=== PATIENT | female | born 1970 | race Caucasian/White ===

== ENCOUNTER → 2019-12-14 14:39 | Outpatient (CLI) | payer MEDICARE, SELFPAY ==
[2019-12-14 14:49] LABS: Chloride 104 mmol/L (98-107); Potassium 4.3 mmoL/L (3.5-5.1); Sodium 140 mmol/L (136-145)
[2019-12-14 14:51] LABS: Alanine Aminotransferase 21 U/L (12-78); Alkaline Phosphatase 75 U/L (38-126); Aspartate Amino Transferase 26 U/L (14-36); Bilirubin,Total 0.3 mg/dl (0.2-1.3); Blood Urea Nitrogen 16 mg/dl (7-17); Estimated Glomerular Filt Rate 90 ml/min (>60); GFR (African American) 109 ML/MIN (>60)
[2019-12-14 14:52] LABS: Albumin Level 4.3 g/dl (3.5-5.0); Albumin/Globulin Ratio 1.7 (1.1-1.8); Anion Gap 12.3 mEq/L (5-15); Calcium 9.5 mg/dl (8.4-10.2); Carbon Dioxide 28 mmol/L (22.0-30.0); Globulin 2.6 g/dL (1.3-3.2); Glucose 91 mg/dl (74-100); Total Protein,Serum 6.9 g/dl (6.3-8.2)
[2019-12-14 15:00] LABS: Basophils # 0.1 K/mm3 (0-0.2); Basophils % 0.8 % (0.1-2.0); Eosinophils # 0.2 K/mm3 (0.0-0.4); Eosinophils % 2.4 % (0.1-12.0); Hematocrit 44.8 % (37.0-47.0); Hemoglobin 14.2 g/dL (12.2-16.2); Lymphocytes # 1.9 K/mm3 (0.7-4.5); Lymphocytes % 27.8 % (10-50); Mean Corpuscular HGB Conc 31.8 g/dL (31.8-35.4); Mean Corpuscular Hemoglobin 29.9 pg (27.0-31.2); Mean Platelet Volume 9.4 fl (7.4-10.4); Monocytes # 0.4 K/mm3 (0.1-1.0); Monocytes % 6.3 % (1.7-9.3); Neutrophils # 4.2 K/mm3 (1.8-7.8); Neutrophils % 62.6 % (37.0-80.0); Platelet Count 288 K/mm3 (142-424); Red Blood Count 4.77 M/mm3 (4.20-5.40); Red Cell Distribution Width 13.3 % (11.5-17.5); White Blood Count 6.7 K/mm3 (4.8-10.8)
[2019-12-14 15:09] LABS: T4 (Thyroxine) 8.3 ug/dl (5.53-11.0)
== END ==
PROVIDERS: Visit Provider Family Medicine
DX: M62.838 Other muscle spasm (principal); M79.7 Fibromyalgia; K74.60 Unspecified cirrhosis of liver
CPT/HCPCS: 80053; 84436; 84443; 85025

== ENCOUNTER → 2020-12-01 10:10 | Outpatient (CLI) | payer MEDICARE, SELFPAY ==
--- NOTE | 2020-12-01 10:21 | XR_ITS ---
PROCEDURE: XR SHOULDER LT MIN 2V CLINICAL INDICATION: pain w/o trauma COMPARISON: No exams were available for comparison FINDINGS: The clavicle is intact. The AC. Joint appears normal. Humeral head and glenoid are normal and there are no soft tissue calcifications. IMPRESSION: No acute findings. Dictated by: Dr. Leonard Larsen MD 12/01/2020 11:17 Dr. Leonard Larsen MD in [place] 12/01/2020 11:17
== END ==
PROVIDERS: PCP Family Medicine; Visit Provider Family Medicine
DX: M25.512 Pain in left shoulder (principal)
CPT/HCPCS: 73030

== ENCOUNTER 2020-12-13 08:00 | Outpatient (RCR) | payer MEDICARE, SELFPAY | END 2020-12-13 08:05 | disposition home or self-care (01) | LOC: PT 08:00 | PROVIDERS: PCP Family Medicine | DX: M25.561 Pain in right knee (principal); M23.91 Unspecified internal derangement of right knee | CPT/HCPCS: 97014; 97016; 97110; 97163; G0283 ==

== ENCOUNTER 2020-12-13 10:00 | Outpatient (RCR) | payer MEDICARE, SELFPAY ==
--- NOTE | 2020-12-06 10:29 | HMH.OTOPEV ---
OT Inpatient Evaluation Rehab OT Outpatient Eval Start: 12/06/20 10:16 Freq: Status: Active Protocol: Document 12/06/20 10:16 RMARSHALL (Rec: 12/06/20 10:28 [id number] Electronically Signed By Anuel Alcaraz OT 12/06/20 10:16 Outpatient Therapy Subjective History Subjective History Pt is a 50 year old female who reports to therapy for initial evaluation to left shoulder. Pt reports she has been experiencing pain at the left shoulder for ~3 months. She does not recall a specific injury to the left shoulder that would initiate pain. Pt does demonstrate with slight decrease in AROM and strength at left shoulder. Pt will continue to be seen twice a week in order to address all deficits. Chief Complaint Pain,Stiff,Weakness Symptom Type Ache,Throb,Sharp,Dull Symptoms Relieved By Rest/Positioning Symptoms Aggravated By Physical Activity,Lifting Prior Functional Limitations None Current Functional Limitations Reaching,Lifting,Housework, Sleeping,Recreation Activity Symptom Description Intermittent,Activity Dependent Level of pain today (0-10) 2 Pain scale - at its best (0-10) 0 Pain scale - at its worst (0-10) 10 Shoulder/Elbow Eval Shoulder Objective Measurements Shoulder ROM Left Shoulder Abduction Active Range of 140 degrees Motion (degrees) Shoulder Flexion Active Range of Motion 140 degrees (degrees) Query Text: Shoulder External Rotation Active Range 65 degrees of Motion (degrees) Shoulder Internal Rotation Active Range 25 degrees of Motion (degrees) Shoulder MMT Shoulder Abduction Strength Grade 3 Fair Shoulder Extension Strength Grade 3 Fair Shoulder Flexion Strength Grade 3 Fair Shoulder External Rotation Strength 3 Fair Grade Shoulder Internal Rotation Strength 3 Fair Grade Shoulder Strength Patient Testing Sitting Position Shoulder Special Tests impingement sign present shoulder exam left standard Shoulder Empty Can (Supraspinatus) Test Positive Left Shoulder Dan-Vince Impingement Positive Left Test Shoulder Neer Impingement Test Positive Left Elbow Objective Measurements OT Outpatient Assessment
== END 2020-12-13 10:05 | disposition home or self-care (01) ==
LOC: OT 10:00
PROVIDERS: PCP Family Medicine; Visit Provider Family Medicine
DX: M25.512 Pain in left shoulder (principal)
CPT/HCPCS: 97014; 97110; 97166; G0283

== ENCOUNTER 2021-01-10 09:40 | Emergency (ER) | payer MEDICARE, SELFPAY ==
[2021-01-10 10:32] VITALS: BP 184/110; PULSE 84; RESP 20; TEMP 36.8; O2SAT 96; BMI 38.0
--- NOTE | 2021-01-10 10:46 | HMH.EDUTC ---
[facility] [place] Clinical Impression: Sinusitis Qualifiers: Sinusitis location: unspecified location Chronicity: acute Recurrence: non-recurrent Qualified Code(s): J01.90 - Acute sinusitis, unspecified Disposition: Home, Self-Care Condition on Discharge: Good Instructions: Sinusitis, DI for Sinusitis Additional Instructions: Drink plenty of fluids. Take tylenol or ibuprofen for pain or fever. Take the medications as directed. Follow up with your regular doctor. GO TO THE ER FOR ANY WORSENING SYMPTOMS The cough medication (promethazine dm) will make you drowsy, so don't drive or operate heavy machinery after taking it. Prescriptions: Promethazine/Dextromethorphan [Promethazine-Dm Syrup] 5 ml PO Q6HP PRN #240 ml PRN Reason: Cough Transmission Status: Received by [facility] Benzonatate [Benzonatate 100mg cap] 100 mg PO TIDP PRN #30 cap PRN Reason: Cough Transmission Status: Received by [facility] methylPREDNISolone [Medrol] 4 mg PO DIRECTED 6 Days #21 packet Transmission Status: Received by [facility] Azithromycin [Z-Leonel 250mg Tab*] 250 mg PO UD DOSE PK #6 tab Transmission Status: Received by [facility] Referrals: Tonny Elder MD [Primary Care Provider] - Time of Disposition: 10:49 Medical Decision Making - Medical Records Medical records reviewed: No: I reviewed the patient's medical records. - Ryder Inquiry Pt receiving controlled substance: No Vital Signs: 01/10/21 10:32 01/10/21 11:06 Temperature 98.2 F 98.2 F Temperature Source Oral Pulse Rate 84 Pulse Rate [Left] 84 Respiratory Rate 20 20 Blood Pressure 184/110 H Blood Pressure [Right Arm] 184/110 H Blood Pressure Mean [Right Arm] 134 02 Sat by Pulse Oximetry 96 - Lab Data Lab results reviewed: Yes: I reviewed the patient's lab results. [facility] [place] - General Stated complaint: fever, cough, runny nose, congestion Time Seen by Provider: 01/10/21 10:46 Mode of Arrival: Ambulatory Source of Information: Patient Limitations: No Limitations Description of Symptoms (Recalled from Triage Doc. by RN): pt states she has bronchitis. pt states she took a covid test and it was negative. pt states she needs a zpack. HEENT Symptoms (Recalled from RN notes): No Resp Symptoms (Recalled from RN notes): Yes (cough) Skin Symptoms (Recalled from RN notes): No MS Symptoms (Recalled from RN notes): No Functional Status (Recalled from RN notes): na - History of Present Illness Provider Complaint: She c/o sore throat, cough and sinus congestion for the past 2 days. She has had covid-19 about 2 months ago, and she states that this is not covid. She states that she has a sinus infection. - Related Data Previous Rx's Medication Instructions Recorded amitriptyline 25 mg tablet 25 mg PO DAILY #90 tab 12/14/19 clobetasol 0.05 % topical cream 1 applic TOPICAL BID 14 Days #60 g 10/03/20 methylprednisolone 4 mg tablets in See Rx Instructions PO PER PKG DIR 10/03/20 a dose pack #21 tab Azithromycin [Z-Leonel 250mg Tab*] 250 mg PO UD DOSE PK #6 tab 01/10/21 Benzonatate [Benzonatate 100mg 100 mg PO TIDP PRN #30 cap 01/10/21 cap] Promethazine/Dextromethorphan 5 ml PO Q6HP PRN #240 ml 01/10/21 [Promethazine-Dm Syrup] methylPREDNISolone [Medrol] 4 mg PO DIRECTED 6 Days #21 01/10/21 packet Allergies Allergy/AdvReac Type Severity Reaction Status Date / Time gabapentin AdvReac Severe Joint Pain Verified 10/03/20 08:54 NSAID AdvReac Intermediate Uncoded 10/03/20 08:46 - Worker's Comp Is this a Worker's Comp case?: No [facility] History - Hepatitis A Screen Drug use history?: No High risk sexual behaviors?: No History of sexually transmitted infection?: No Currently employed?: No Childcare worker?: No Do you have indoor plumbing?: Yes Do you have electricity?: Yes Attestation statement:: This patient has been screened for Hepatitis A risk factors. I have re
[2021-01-10 11:06] VITALS: BP 184/110; PULSE 84; RESP 20; TEMP 36.8
== END 2021-01-10 11:07 | disposition home or self-care (01) ==
PROVIDERS: Emergency Provider Nurse Practitioner Family; PCP Family Medicine
DX: J01.90 Acute sinusitis, unspecified (principal); Z20.822 Contact with and (suspected) exposure to COVID-19
CPT/HCPCS: G0463; 99202

== ENCOUNTER → 2021-01-24 11:59 | Outpatient (CLI) | payer OTHER, SELFPAY ==
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
== END ==
PROVIDERS: PCP Family Medicine; Visit Provider Family Medicine
DX: M25.551 Pain in right hip (principal); M54.6 Pain in thoracic spine; M54.50 Low back pain, unspecified; V89.2XXA Person injured in unspecified motor-vehicle accident, traffic, initial encounter
CPT/HCPCS: 71111; 72072; 72110; 73502

== ENCOUNTER → 2021-02-13 09:44 | Outpatient (POV) | payer OTHER, SELFPAY ==
[2021-02-13 10:40] VITALS: BP 161/91; PULSE 62; RESP 18; O2SAT 96; BMI 40.4
--- NOTE | 2021-03-20 08:44 | HMH.PMCON ---
Assessment and Plan (1) Neck pain Status: Chronic Category: Medical Code(s): M54.2 - Cervicalgia (2) Mid back pain Status: Chronic Category: Medical Code(s): M54.9 - Dorsalgia, unspecified (3) Low back pain Status: Chronic Category: Medical Code(s): M54.50 - Low back pain, unspecified - Assessment and plan all Dx Assessment and Plan for all problems:: Patient's pain is primarily in her neck area at this time. She does not have any recent imaging. We will send her for x-ray cervical spine per her request. We will order her tramadol 50 mg 1 tablet p.o. 3 times daily as needed moderate pain until we get the imaging back and determine a plan of care at that time. She is in agreement. Risks and benefits of the medication have been explained in detail to the patient. The patient does understand the risk of dependence on the medication when given over a prolonged period. Patient has been advised of risks of oversedation with the prescribed medication. Narcan has been offered to the paitent in the event of oversedation. Patient has been advised that a family member should also be educated regarding administration of Narcan. The patient has been advised to consult with his/her primary care provider and pharmacist regarding drug-drug interaction of medications currently prescribed. Patient has been prescribed a controlled substance after being counseled on the medication, medication safety, and possible side effects. CHUCK report has been obtained and reviewed prior to prescription and found to be appropriate. Opioid contract was reviewed and signed by the patient, and that they have agreed to all of the terms set forth by our compliance program. Patient has been instructed to contact the clinic with any concerns before the next appointment. Dr. De La Paz has reviewed this note and agrees with this plan of care. This note was dictated using voice recognition software and make contain errors or omissions. HPI - Data of Consult Patient: new to practice Requesting Physician: Sara Macedo APRN - Consult Narrative Reason for consult: Neck pain History of present illness: Ms. Oswald is a 50 year old female who presents today for consultation for chronic neck, mid back and low back pain. The patient says the pain has been ongoing for some time. She reports the pain to be progressively worsening. She has had a thoracic and lumbar x-rays from her primary care provider. She has been managed with oral medications in the past. She says the pain is worse with movement of head as well as standing and walking. The pain has not improved with conservative therapies. She has tried home stretching and physical therapy in the past. She does report her neck to be the most painful at this time. She does not have any current imaging of the area. She denies any changes in bowel or bladder habit. She denies any saddle anesthesia. She rates her pain a 6 out of 10. CC: Sara Macedo APRN [facility] History I have reviewed the patient's past medical history: Yes Medical History: Reports:: Cancer, Migraine *Have you ever received a pneumonia vaccine?: No *Have you received a flu vaccine this season?: No Other Surgeries: Yes: Dilation and Curettage, Hysterectomy-Total, Plastic Surgery, Tubal Ligation - *Social History Smoking Status: Never smoker Alcohol Intake: never Substance Use Type: denies use *Occupational Status:: employed, disabled Housing: house Household Members: spouse *Travel in the last 8 weeks: None Family Hx:: No significant family history Review of Systems - Review of Systems Review of Systems General: No recent weight changes, no fever, no sleep disturbances Respiratory: No cough, no shortness of air, no recurring pulmonary infections Cardiovascular/peripheral vascular: No chest pain, no palpitations, no edema, no shortness of breath Gastrointestinal: No new onset incontinence, normal bowel
== END ==
PROVIDERS: Visit Provider Clinical Nurse Specialist Family Health
DX: M54.2 Cervicalgia (principal); M54.50 Low back pain, unspecified
CPT/HCPCS: 99202; G0463

== ENCOUNTER → 2021-02-13 11:11 | Outpatient (CLI) | payer OTHER, SELFPAY ==
--- NOTE | 2021-02-13 11:17 | XR_ITS ---
PROCEDURE: XR CERVICAL SPINE 5V CLINICAL INDICATION: NECK PAIN COMPARISON: CR CS5 CERVICAL SPINE 4 OR 5 VIEWS from 06/13/2013 FINDINGS: C-spine is only well visualized to the superior aspect of C7. There is degenerative disc disease at C5-C6 and C6-C7. Foraminal narrowing is present on the left at C5-C6 and and to lesser degree at C6-C7. There is normal alignment. No acute fracture or dislocation is evident. Other findings:None. IMPRESSION: Degenerative disc disease C5-C6 and C6-C7 with left-sided foraminal narrowing at C 5 -6 and C6-7 Dictated by: Todd Rose MD 02/13/2021 16:57 Todd Rose MD in [place] 02/13/2021 16:57
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
== END ==
PROVIDERS: PCP Family Medicine; Visit Provider Clinical Nurse Specialist Family Health
DX: M54.2 Cervicalgia (principal)
CPT/HCPCS: 72050

== ENCOUNTER 2023-04-15 13:05 | Emergency (ER) | payer MEDICARE, SELFPAY ==
[2023-04-15] VITALS (8 sets, daily range): BP systolic 105–149; BP diastolic 73–85; PULSE 63–87; RESP 8–18; TEMP 36.7; O2SAT 93–100; BMI 34.5
--- NOTE | 2023-04-15 13:36 | CT_ITS ---
FINAL REPORT TECHNIQUE: After the administration of oral and intravenous contrast, axial images were obtained through the abdomen and pelvis by computed tomography. The study was performed with techniques to keep radiation dose as low as reasonably achievable, (ALARA). Individual dose reduction techniques using automated exposure control or adjustment of mA and/or kV according to the patient's size were employed. CLINICAL HISTORY: epigastric pain, hx PUD, palpable knot epigastrium showed up saturday COMPARISON: None FINDINGS: Abdomen: The lung bases are clear. The liver parenchyma is homogeneous. The gallbladder is present. The spleen, pancreas, adrenals and kidneys appear unremarkable. The aorta is normal in caliber. There is no free fluid or adenopathy. There is an umbilical hernia with fat, and adjacent stranding and inflammatory change within the hernia sac. The fascial defect of the hernia measures 1.5 cm in diameter. There is no bowel present within the hernia sac. Pelvis: The appendix is not well identified. The urinary bladder is unremarkable. There is no free fluid or adenopathy. IMPRESSION: There is an umbilical hernia containing fat, with adjacent stranding and inflammatory change of the fat within the hernia sac. The fascial defect of the hernia measures 1.5 cm in diameter, and there is no bowel present within the hernia sac. Reviewed, Interpreted and Dictated by Lui Lawler MD Transcribed by Indy Muñoz Authenticated and [facility]
--- NOTE | 2023-04-15 13:39 | HMH.EDGENADL ---
Discharge Plan Disposition Patient Disposition: Home, Self-Care Condition: Good Chief Complaint: Abdominal Pain Prescriptions Prescriptions: No Action amitriptyline 25 mg tablet 25 mg PO DAILY Qty: 90 3RF [id number] [Fioricet with Codeine] [id number] mg capsule 1 cap PO Q4H PRN (Reason: pain) Qty: 45 3RF cyclobenzaprine 10 mg tablet 10 mg PO TID PRN (Reason: muscle spasm) Qty: 60 3RF tramadol 50 MG tablet 50 mg PO TID PRN (Reason: Moderate Pain) Qty: 42 0RF acetazolamide 500 mg capsule, extended release 500 mg PO BID Patient Comments: TAKE 1 CAPSULE BY MOUTH TWICE DAILY. THIS IS IN ADDITION TO THE 250 MG TWICE DAILY acetazolamide 250 mg tablet 250 mg PO DAILY Patient Comments: TAKE 1 TABLET BY MOUTH ONCE DAILY FOR 2 WEEKS THEN INCREASE TO TWICE DAILY THEREAFTER Referrals Follow up/Referrals: Deion Sen MD [Primary Care Provider] - See instructions Clinical Impressions Clinical Impression: Hernia Instructions Patient Instructions: DI for Ventral Hernia Discharge ED Provider: Yadira Banks General Adult HPI <Jairo Etienne DO - Last Filed: 04/15/23 15:45> General Chief complaint: Abdominal Pain Stated complaint: abd pain Time Seen by Provider: 04/15/23 13:31 Mode of Arrival: Ambulatory Source of Information: Patient Limitations: No Limitations Description of Symptoms (Recalled from ER Triage Doc. by RN): patient ambulatory to ED with complaints of generalized abdominal pain since saturday. She felt a sharp pain to umbilical area, then immediatly felt a knot in same location. Pt rates pain 9/10 with pressure. Denies n/v/d or fever. History of Present Illness HPI narrative: 52-year-old female with past medical history significant for polymyalgia, uterine cancer in remission s/p hysterectomy, history of peptic ulcer disease, presents today for evaluation concerning epigastric abdominal pain which has been present since this past Saturday. Patient states that she has also noted a knot in the area that is tender to palpation. States that she has been able to tolerate oral intake however decreased secondary to pain. Has not had any nausea, vomiting, fevers, chills, chest pain, shortness of breath, dysuria, hematuria, diarrhea, constipation or any other associated symptoms at this time. Related Data Home Medications Medication Instructions Recorded Confirmed acetazolamide 250 mg tablet 250 mg PO DAILY 04/15/23 04/15/23 acetazolamide 500 mg 500 mg PO BID 04/15/23 04/15/23 capsule,extended release Previous Rx's Medication Instructions Recorded amitriptyline 25 mg tablet 25 mg PO DAILY #90 tabs 12/14/19 butalbital 50 mg-acetaminophen 300 1 cap PO Q4H PRN pain #45 caps 02/06/21 mg-caffeine 40 mg-codeine 30 mg cap (Fioricet with Codeine) cyclobenzaprine 10 mg tablet 10 mg PO TID PRN muscle spasm #60 02/06/21 tabs tramadol 50 mg tablet 50 mg PO TID PRN Moderate Pain #42 02/14/21 tabs Allergies Allergy/AdvReac Type Severity Reaction Status Date / Time NSAIDS (Non-Steroidal Allergy Unknown Unknown Unverified 04/15/23 15:40 Anti-Inflamma allergy reaction gabapentin AdvReac Severe Joint Pain Verified 04/15/23 13:59 PFSH <Jairo Etienne DO - Last Filed: 04/15/23 15:45> [facility] Disclaimer: The information contained in this section may have been updated after the patient was seen, as this information can be updated by other users. Social History Smoking Status: Never smoker alcohol intake: never substance use type: denies use current occupational status: unemployed Travel in the last 8 weeks: None household members: spouse housing: house <Jairo Etienne DO - Last Filed: 04/15/23 15:45> ROS Obtained: Yes All systems reviewed & no additional complaints except as documented Physical Exam <Jairo Etienne DO - Last Filed: 04/15/23 15:45> General General appearance: alert and in no apparent distress Head Head exam: atraumatic and normocephalic Eye Eye exam: Present normal appearance, PERRL and EOMI ENT ENT exam: Present normal oropharynx and mucous membranes moist Neck Neck exam: Present full ROM; Absent meningismus Respiratory Respiratory exam: Absent respiratory distress, wheezes, stridor or accessory muscle use Cardiovascular Cardiovascular exam: Present normal rhythm Abdominal Exam Abdominal exam: Present soft, tenderness and mass (Palpable mass noted in the epigastric region.); Absent distention, guarding, rebound or rigidity Abdominal tenderness: Present epigastrium Neurological Exam Neurological exam: Present alert, oriented X3 and CN II-XII intact; Absent motor sensory deficit Psychiatric Psychiatric exam: Present normal affect and normal mood Skin Skin exam: Present warm and dry Medical Decision Making <Jairo Etienne DO - Last Filed: 04/15/23 15:45> Medical Records Medical records reviewed: Yes I reviewed the patient's medical records. Ryder Inquiry Pt receiving controlled substance: No Ryder was queried for this patient: No Vital Signs: 04/15/23 13:06 04/15/23 14:02 04/15/23 15:02 Temperature 98.0 F Temperature Source Oral Pulse Rate 72 72 Pulse Rate [Right] 87 Respiratory Rate 13 12 18 Blood Pressure 105/79 L 121/80 Blood Pressure [Right Arm] 149/85 H Blood Pressure Mean [Right Arm] 106 Blood Pressure Source [Right Arm] Automatic Cuff 02 Sat by Pulse Oximetry 96 99 93 L Oxygen Delivery Method Room Air Room Air Room Air Lab Data Lab Results 04/15/23 13:20: WBC 6.7, RBC 4.36, Hgb 13.8, Hct 41.1, MCV 94.2, MCH 31.6 H, MCHC 33.5, RDW 12.9, Plt Count 238, MPV 7.4, Neut % (Auto) 62.4, Lymph % (Auto) 30.4, Sandoval % (Auto) 5.1, Eos % (Auto) 1.4, Baso % (Auto) 0.6, Neut # (Auto) 4.2, Lymph # (Auto) 2.1, Sandoval # (Auto) 0.3, Eos # (Auto) 0.1, Baso # (Auto) 0.0, Sodium 140, Potassium 3.7, Chloride 113 H, Carbon Dioxide 26, Anion Gap 4.7 L, BUN 9, Creatinine 0.60, Estimated Creat Clear 137, Estimated GFR 106, Est GFR ( Amer) 128, Glucose 88, Calcium 8.8, Total Bilirubin 0.4, AST 25, ALT 24, Alkaline Phosphatase 78, Total Protein 6.9, Albumin 4.1, Globulin 2.8, Albumin/Globulin Ratio 1.5 04/15/23 13:40: Lactate 0.5 L 04/15/23 13:20 04/15/23 13:20 Orders (Tests/Meds): ED MEDICATIONS Generic Name Dose Route Start Last Admin Trade Name Jerrellq PRN Reason Stop Dose Admin Sodium Chloride 10 ml 04/15/23 13:32 Sodium Chloride 0.9% 10ml Flush Syringe IV 05/15/23 13:31 NEEDED PRN Maintain IV Site Discontinued Medications Generic Name Dose Route Start Last Admin Trade Name Jerrellq PRN Reason Stop Dose Admin Iopamidol 75 ml 04/15/23 13:52 04/15/23 13:53 Iopamidol-370 (76%);100ml Bottle IV 04/15/23 13:53 75 ml ONCE ONE Administration Morphine Sulfate 4 mg 04/15/23 13:36 04/15/23 13:45 Morphine 4mg/Ml Syringe IV 04/15/23 13:37 4 mg ONCE ONE Administration Morphine Sulfate 4 mg 04/15/23 15:32 04/15/23 15:36 Morphine 4mg/Ml Syringe IV 04/15/23 15:33 4 mg ONCE ONE Administration Ondansetron HCl 4 mg 04/15/23 13:36 04/15/23 13:44 Ondansetron 4mg/2ml Vial IV 04/15/23 13:37 4 mg ONCE ONE Administration Sodium Chloride 10 ml 04/15/23 13:52 04/15/23 13:53 Sodium Chloride 0.9% 10ml Syr (Rad Only) IV 04/15/23 13:53 10 ml ONCE ONE Administration ORDERS Category Date Time Status CT abdomen pelvis w con Stat Cat Scan 04/15/23 13:36 Completed CBC w/Auto Diff [Complete Blood Count Auto Diff] Stat Lab 04/15/23 13:20 Completed CMP [Comprehensive Metabolic Panel] Stat Lab 04/15/23 13:20 Completed Lactic Acid Stat Lab 04/15/23 13:40 Completed ECG initial Besson Routine Y 04/15/23 14:03 Completed ECG Data Tracing #1: I reviewed this ECG and interpreted as documented below: EKG personally interpreted by me. Normal sinus rhythm with a rate of [address] elevations to suggest ischemia. Medical Decision Narrative: 52-year-old female with past medical history significant for polymyalgia, uterine cancer in remission s/p hysterectomy, history of peptic ulcer disease, presents today for evaluation concerning epigastric abdominal pain which has been present since this past Saturday. Patient states that she has also noted a knot in the area that is tender to palpation. States that she has been able to tolerate oral intake however decreased secondary to pain. On assessment, the patient was hemodynamically stable and in no acute distress. Afebrile. Physical exam was remarkable for epigastric tenderness to palpation without rebound or guarding. There is also a palpable mass located in the epigastric region. Other physical exam findings unremarkable. Differential diagnoses include but not limited to hernia, peptic ulcer disease, gastritis, gastroenteritis, ACS considered however low suspicion as patient does not have any complaints of chest pain or shortness of breath and does not have risk factors, pancreatitis among others. Patient's CBC has been nonactionable with no elevation in WBC at 6.7. CMP also nonactionable. No transaminitis. EKG was personally interpreted by me and was with normal sinus rhythm with a rate of 74 bpm, no ST elevations noted. She was given IV morphine for pain control while in the ED. Subsequently required a second dose of 4 mg IV morphine. At this time CT results are pending however on my wet read there appears to be a fat-containing hernia in the epigastric region which likely explains patient's symptoms. I discussed current ED workup and results with patient. Care signed out to oncoming provider pending CT imaging results and final disposition. <Yadira Banks MD - Last Filed: 04/15/23 17:02> Vital Signs: 04/15/23 13:06 04/15/23 14:02 04/15/23 15:02 Temperature 98.0 F Temperature Source Oral Pulse Rate 72 72 Pulse Rate [Right] 87 Respiratory Rate 13 12 18 Blood Pressure 105/79 L 121/80 Blood Pressure [Right Arm] 149/85 H Blood Pressure Mean [Right Arm] 106 Blood Pressure Source [Right Arm] Automatic Cuff 02 Sat by Pulse Oximetry 96 99 93 L Oxygen Delivery Method Room Air Room Air Room Air Lab Data Lab Results 04/15/23 13:20: WBC 6.7, RBC 4.36, Hgb 13.8, Hct 41.1, MCV 94.2, MCH 31.6 H, MCHC 33.5, RDW 12.9, Plt Count 238, MPV 7.4, Neut % (Auto) 62.4, Lymph % (Auto) 30.4, Sandoval % (Auto) 5.1, Eos % (Auto) 1.4, Baso % (Auto) 0.6, Neut # (Auto) 4.2, Lymph # (Auto) 2.1, Sandoval # (Auto) 0.3, Eos # (Auto) 0.1, Baso # (Auto) 0.0, Sodium 140, Potassium 3.7, Chloride 113 H, Carbon Dioxide 26, Anion Gap 4.7 L, BUN 9, Creatinine 0.60, Estimated Creat Clear 137, Estimated GFR 106, Est GFR ( Amer) 128, Glucose 88, Calcium 8.8, Total Bilirubin 0.4, AST 25, ALT 24, Alkaline Phosphatase 78, Total Protein 6.9, Albumin 4.1, Globulin 2.8, Albumin/Globulin Ratio 1.5 04/15/23 13:40: Lactate 0.5 L Orders (Tests/Meds): ED MEDICATIONS Generic Name Dose Route Start Last Admin Trade Name Freq PRN Reason Stop Dose Admin Sodium Chloride 10 ml 04/15/23 13:32 Sodium Chloride 0.9% 10ml Flush Syringe IV 05/15/23 13:31 NEEDED PRN Maintain IV Site Discontinued Medications Generic Name Dose Route Start Last Admin Trade Name Freq PRN Reason Stop Dose Admin Iopamidol 75 ml 04/15/23 13:52 04/15/23 13:53 Iopamidol-370 (76%);100ml Bottle IV 04/15/23 13:53 75 ml ONCE ONE Administration Morphine Sulfate 4 mg 04/15/23 13:36 04/15/23 13:45 Morphine 4mg/Ml Syringe IV 04/15/23 13:37 4 mg ONCE ONE Administration Morphine Sulfate 4 mg 04/15/23 15:32 04/15/23 15:36 Morphine 4mg/Ml Syringe IV 04/15/23 15:33 4 mg ONCE ONE Administration Ondansetron HCl 4 mg 04/15/23 13:36 04/15/23 13:44 Ondansetron 4mg/2ml Vial IV 04/15/23 13:37 4 mg ONCE ONE Administration Sodium Chloride 10 ml 04/15/23 13:52 04/15/23 13:53 Sodium Chloride 0.9% 10ml Syr (Rad Only) IV 04/15/23 13:53 10 ml ONCE ONE Administration ORDERS Category Date Time Status CT abdomen pelvis w con Stat Cat Scan 04/15/23 13:36 Completed CBC w/Auto Diff [Complete Blood Count Auto Diff] Stat Lab 04/15/23 13:20 Completed CMP [Comprehensive Metabolic Panel] Stat Lab 04/15/23 13:20 Completed Lactic Acid Stat Lab 04/15/23 13:40 Completed ECG initial Besson Routine Y 04/15/23 14:03 Completed Medical Decision Narrative: 52-year-old female with past medical history significant for polymyalgia, uterine cancer in remission s/p hysterectomy, history of peptic ulcer disease, presents today for evaluation concerning epigastric abdominal pain which has been present since this past Saturday. Patient states that she has also noted a knot in the area that is tender to palpation. States that she has been able to tolerate oral intake however decreased secondary to pain. On assessment, the patient was hemodynamically stable and in no acute distress. Afebrile. Physical exam was remarkable for epigastric tenderness to palpation without rebound or guarding. There is also a palpable mass located in the epigastric region. Other physical exam findings unremarkable. Differential diagnoses include but not limited to hernia, peptic ulcer disease, gastritis, gastroenteritis, ACS considered however low suspicion as patient does not have any complaints of chest pain or shortness of breath and does not have risk factors, pancreatitis among others. Patient's CBC has been nonactionable with no elevation in WBC at 6.7. CMP also nonactionable. No transaminitis. EKG was personally interpreted by me and was with normal sinus rhythm with a rate of 74 bpm, no ST elevations noted. She was given IV morphine for pain control while in the ED. Subsequently required a second dose of 4 mg IV morphine. At this time CT results are pending however on my wet read there appears to be a fat-containing hernia in the epigastric region which likely explains patient's symptoms. I discussed current ED workup and results with patient. Care signed out to oncoming provider pending CT imaging results and final disposition. Yadira Banks MD: I assumed care of this patient and independently reviewed and interpreted her CT scan. I agree with radiologist interpretation that patient has a midline abdominal wall hernia superior to the umbilicus with adjacent stranding but no incarcerated bowel or bowel obstruction. The hernia is fat-containing. I discussed this with patient and performed a physical exam significant for reducible midline hernia with no signs of strangulation or other concerns. Discussed with patient conservative management and an urgent referral to general surgery and patient is comfortable with this plan. She was appropriate for discharge with strict return precautions and I discussed with her signals of bowel incarceration or bowel obstruction and other complications. Critical Care <Jairo Etienne, DO - Last Filed: 04/15/23 15:45> Critical Care Time Critical Care Time: No
[2023-04-15] MEDS: ONDANSETRON 4MG/2ML VIAL 4 MG IV (13:44)
[2023-04-15] MEDS: MORPHINE 4MG/ML SYRINGE 4 MG IV ×2 (13:45→15:36)
[2023-04-15 13:48] LABS: Basophils % 0.6 % (0.1-2.0); Eosinophils # 0.1 K/mm3 (0.0-0.4); Eosinophils % 1.4 % (0.1-12.0); Hematocrit 41.1 % (37.0-47.0); Hemoglobin 13.8 g/dL (12.2-16.2); Lymphocytes # 2.1 K/mm3 (0.7-4.5); Lymphocytes % 30.4 % (10-50); Mean Corpuscular HGB Conc 33.5 g/dL (31.8-35.4); Mean Corpuscular Hemoglobin 31.6 pg (27.0-31.2); Mean Corpuscular Volume 94.2 fl (81-99); Mean Platelet Volume 7.4 fl (7.4-10.4); Monocytes # 0.3 K/mm3 (0.1-1.0); Monocytes % 5.1 % (1.7-9.3); Neutrophils # 4.2 K/mm3 (1.8-7.8); Neutrophils % 62.4 % (37.0-80.0); Platelet Count 238 K/mm3 (142-424); Red Blood Count 4.36 M/mm3 (4.20-5.40); Red Cell Distribution Width 12.9 % (11.5-17.5); White Blood Count 6.7 K/mm3 (4.8-10.8)
[2023-04-15 13:49] LABS: Chloride 113 mmol/L (98-107)
[2023-04-15 13:50] LABS: Potassium 3.7 mmoL/L (3.5-5.1); Sodium 140 mmol/L (136-145)
[2023-04-15 13:52] LABS: Alanine Aminotransferase 24 U/L (12-78); Aspartate Amino Transferase 25 U/L (14-36); Blood Urea Nitrogen 9 mg/dl (7-17); Creatinine Clearance Estimated 137 mL/min (50-200); Estimated Glomerular Filt Rate 106 ml/min (>60); GFR (African American) 128 ML/MIN (>60)
[2023-04-15 13:53] LABS: Albumin Level 4.1 g/dl (3.5-5.0); Albumin/Globulin Ratio 1.5 (1.1-1.8); Alkaline Phosphatase 78 U/L (38-126); Anion Gap 4.7 mEq/L (5-15); Bilirubin,Total 0.4 mg/dl (0.2-1.3); Calcium 8.8 mg/dl (8.4-10.2); Carbon Dioxide 26 mmol/L (22.0-30.0); Globulin 2.8 g/dL (1.3-3.2); Glucose 88 mg/dl (74-100); Total Protein,Serum 6.9 g/dl (6.3-8.2)
[2023-04-15] MEDS: SODIUM CHLORIDE 0.9% 10ML SYR (RAD ONLY) 10 ML IV (13:53)
[2023-04-15] MEDS: IOPAMIDOL-370 (76%);100ML BOTTLE 75 ML IV (13:53)
--- NOTE | 2023-04-15 14:03 | ECG_ITS ---
APPROVED REPORT Exam: Resting ECG HR:74 bpm ECG Measurements Heart Rate 74 AXES WV 136 P 40 QRSd 98 QRS -3 QT 395 T 51 QTc 422 Conclusion SINUS RHYTHM LOW QRS VOLTAGE IN PRECORDIAL LEADS [QRS DEFLECTION Late R wave progression Electronically signed by : Jose Savage MD 04/16/2023 20:11:23
[2023-04-15 14:09] LABS: Lactic Acid 0.5 mmol/L (0.7-2.1)
--- NOTE | 2023-04-15 14:57 | PC.NURSE ---
Rounded on pt. No needs or complaints voiced a this time. Call light within reach.
--- NOTE | 2023-04-15 15:30 | PC.NURSE ---
Pt resting quietly. No needs voiced. Call light within reach.
== END 2023-04-15 17:12 | disposition home or self-care (01) ==
PROVIDERS: Emergency Medicine; Emergency Provider Emergency Medicine; PCP Family Medicine
DX: R10.13 Epigastric pain (principal); K42.9 Umbilical hernia without obstruction or gangrene; M35.3 Polymyalgia rheumatica; Z85.42 Personal history of malignant neoplasm of other parts of uterus
CPT/HCPCS: 74177; 80053; 83605; 85025; 93005; 96374; 96375; 96376; 99285; J2405; Q9967

== ENCOUNTER 2023-04-18 10:02 | Outpatient (CLI) | payer MEDICARE, SELFPAY ==
[2023-04-18 10:37] LABS: Basophils % 0.7 % (0.1-2.0); Eosinophils # 0.1 K/mm3 (0.0-0.4); Eosinophils % 1.7 % (0.1-12.0); Hematocrit 43.8 % (37.0-47.0); Hemoglobin 13.9 g/dL (12.2-16.2); Lymphocytes # 1.4 K/mm3 (0.7-4.5); Lymphocytes % 29.5 % (10-50); Mean Corpuscular HGB Conc 31.7 g/dL (31.8-35.4); Mean Corpuscular Hemoglobin 31.2 pg (27.0-31.2); Mean Corpuscular Volume 98.4 fl (81-99); Mean Platelet Volume 7.5 fl (7.4-10.4); Monocytes # 0.3 K/mm3 (0.1-1.0); Monocytes % 5.2 % (1.7-9.3); Neutrophils % 62.9 % (37.0-80.0); Platelet Count 257 K/mm3 (142-424); Red Blood Count 4.45 M/mm3 (4.20-5.40); Red Cell Distribution Width 12.9 % (11.5-17.5); White Blood Count 4.8 K/mm3 (4.8-10.8)
[2023-04-18 10:48] LABS: Anion Gap 11.9 mEq/L (5-15); Blood Urea Nitrogen 9 mg/dl (7-17); Calcium 9.5 mg/dl (8.4-10.2); Carbon Dioxide 23 mmol/L (22.0-30.0); Chloride 111 mmol/L (98-107); Estimated Glomerular Filt Rate 76 ml/min (>60); GFR (African American) 92 ML/MIN (>60); Glucose 89 mg/dl (74-100); Potassium 3.9 mmoL/L (3.5-5.1); Sodium 142 mmol/L (136-145)
== END 2023-04-18 23:59 ==
PROVIDERS: PCP Family Medicine; Visit Provider Surgery
DX: K46.9 Unspecified abdominal hernia without obstruction or gangrene (principal); Z01.812 Encounter for preprocedural laboratory examination
CPT/HCPCS: 36415; 80048; 85025

== ENCOUNTER 2023-04-23 10:23 | Day surgery (SDC) | payer MEDICARE, SELFPAY ==
[2023-04-23] VITALS (9 sets, daily range): BP systolic 117–156; BP diastolic 74–97; PULSE 60–88; RESP 12–18; TEMP 36.4–36.7; O2SAT 97–100
[2023-04-23] MEDS: LACTATED RINGERS 1000ML 1,000 ML 25 ML IV (10:39)
[2023-04-23] MEDS: LIDOCAINE 1% 20ML MDV 20 ML (12:24)
[2023-04-23] MEDS: CEFAZOLIN SODIUM 1 GM in 0.9 % SODIUM CHLORIDE 50 ML IV (12:24)
[2023-04-23] MEDS: ROPIVACAINE 0.5% 30ML VIAL 150 MG (12:24)
--- NOTE | 2023-04-23 12:33 | EXP.ANES.CKL ---
[facility] Disclaimer: The information contained in this section may have been updated after the patient was seen, as this information can be updated by other users. Medical History Fibromyalgia History of uterine cancer Surgical History H/O: hysterectomy Hx of breast reduction, elective Family History Other Family history of cancer Social History Smoking Status: Never smoker alcohol intake: never substance use type: denies use current occupational status: unemployed Travel in the last 8 weeks: Inside the [place] household members: spouse housing: house [facility] Anesthesia Checklist Patient Identification Patient Identification: Verbal (Name & ) Structural Data Admitted From: Home Planned Operative Procedure/s: incisional hernia rpr Consent for Planned Operative Procedure(s) Verified: Yes NPO Status Verified Time NPO: 00:00 Additional verifications Anesthesia Reactions: No Hx Blood Transfusions: No Airway Assessment Mallampati Score:: Class II C-Spine Mobility Assessed: Yes TMJ Mobility Assessed: Yes Dentition: Good Dentition Neurological Assessment Level of Consciousness: Awake, Alert and Appropriate Anesthesia Plan Anesthesia Risk discussed: Yes Anesthesia Plan: Verified ASA Class: II Anesthesia Type: General
--- NOTE | 2023-04-23 13:22 | EXP.OP.NOTE ---
Date of procedure: 04/23/23 Pre-op Diagnosis:: Trocar site incisional hernia Post-op Diagnosis:: Same Procedure performed:: Laparoscopically directed repair of incisional hernia with placement of 6.4 cm Ventralex mesh Surgeon:: Ike East MD REAMING MACHINE OPERATOR:: Shady Serrano Anesthesia: GETA Estimated blood loss (mL): 10 Clinical Note:: Patient is a 52-year-old female from [place] with history of fibromyalgia, uterine cancer status post previous laparoscopic hysterectomy. She was referred to the office from the emergency department for hernia. Her primary care provider is Deion Sen. She had been out of town traveling and states that she had eaten somewhat more than usual. She developed relatively sudden onset of upper abdominal pain and tenderness with a palpable knot. She states that eating had continued to cause exacerbations of the pain. She presented to the emergency department due to ongoing symptoms on 04/15/2023. She underwent CT scan which revealed a small (1.5 cm fascial defect) supraumbilical fat-containing hernia with no evidence of any bowel present. She was referred for surgical consultation. Of note, the patient had previously undergone laparoscopic hysterectomy for uterine cancer using da Chanelle robot in 2013 at [place]. Patient was seen in the office as an outpatient consultation on 04/18/2023. She had focal tenderness above her umbilicus likely consistent with trocar site incisional hernia. Patient wished to pursue surgery as soon as possible. I felt that the best plan of action would be laparoscopically directed repair likely with medium Bard Ventralex mesh. Options were discussed with the patient and the nature and details of the proposed procedure along with the associated risks and expected outcome. Patient was anxious to proceed with surgery. Operative findings:: Patient had a small, 1 to 1.5 cm, fascial defect with some herniated omentum. This is easily reduced without manipulation. Operative note:: Patient was taken to the operating room. She was given preoperative intravenous antibiotics. In the operating room she is placed in a supine position. General anesthesia was induced. Abdomen was prepped and draped in the standard surgical fashion. Through a 5 mm left subcostal incision 5 mm optical trocar was inserted. CO2 pneumoperitoneum was achieved. Intra-abdominal surveillance was carried out. She was noted to have small hernia defect which actually was slightly above the scar on her abdomen from previous trocar side. Additional 5 mm trocar was inserted in the left lower abdomen. Without significant manipulation the contents of the hernia sac easily reduced. There was some involved falciform ligament. To allow for mesh placement this was taken down using JOCELYN ultrasonic harmonic chanel. It was felt that best plan of action would be laparoscopically directed repair of hernia with placement of Ventralex mesh. The central aspect of the hernia actually was a couple centimeters above her laparoscopic scar. Skin was marked with a skin marker. Skin incision was made overlying the hernia defect. Dissection was carried down through subcutaneous tissues to the hernia sac which was then incised and CO2 pneumoperitoneum was evacuated. The peritoneum of the hernia sac was excised to normal fascia and the hernia sac was sent off as a specimen. Overall size of the defect was rather small measuring about 1 cm. A medium sized, 6.4 cm, Bard Ventralex mesh was then inserted through the defect. Traction was placed on the Prolene tails of the mesh positioning it anteriorly. At this time CO2 pneumoperitoneum was reestablished and laparoscopic evaluation was carried out which revealed good placement of the mesh with excellent fascial overlap. CO2 pneumoperitoneum was then reevacuated. The Prolene tails were then sutured superiorly and inferiorly to the fascia with several 2-0 PDS sutures. Tails were then cut flush with the fascia. Repair appeared adequate. CO2 pneumoperitoneum was reestablished. Mesh appeared to be in a good position. To assure stable coverage several OPTi fix anchors were placed around the periphery. There was good hemostasis. CO2 pneumoperitoneum was then evacuated as trocars were removed. Local anesthetic was infiltrated into all incisions. Skin incisions were closed with 4 Monocryl. Steri-Strips and dressings were applied. Condition: stable Disposition: PACU Complications:: None immediately apparent
--- NOTE | 2023-04-23 13:23 | P.PNANES_ITS ---
[facility] Anesthesia Record Part I Anesthesia Record I Intake, IV Amount: 1,500 Hydration: Adequate Estimated blood loss (mL): 0 Urine output (mL): 0 Blood Pressure: 140/87 SaO2: 97 Pulse Rate: 88 Airway Patency: Patent Respiratory Rate: 12 Temperature: 97.5 F Patient is:: Awake and Stable Stable to PACU at:: 13:20
--- NOTE | 2023-04-24 07:16 | P.PNANES_ITS ---
[facility] Anesthesia Record Part II Anesthesia Record Part II Discharge Time: 13:50 Destination: Surgical Day Care (OP Surgery) PACU nurse assessment reviewed?: Yes Patient Condition:: Good Anesthesia Complications:: None Swallowing reflex intact?: Yes Airway Patency: Patent Cyanosis?: No Blood Pressure: 136/83 SaO2: 100 Respiratory Rate: 16 Pulse Rate: 60 Temperature: 97.8 F Mental Status: Alert & Oriented Pain level:: 0 Nausea and/or vomitting:: None Intake, IV Amount: 0 Hydration: Adequate
[2023-04-24 07:17] VITALS: BP 136/83; PULSE 60; RESP 16; TEMP 36.6; O2SAT 100
== END 2023-04-23 14:17 | disposition home or self-care (01) ==
PROVIDERS: PCP Family Medicine; Visit Provider Surgery
PROC: (CPT 49593; principal; 2023-04-23 12:05)
DX: K43.2 Incisional hernia without obstruction or gangrene (principal)
CPT/HCPCS: 49593; 88302; 96374; C1781; J2405; J2710

== ENCOUNTER 2023-06-03 07:43 | Outpatient (CLI) | payer MEDICARE, SELFPAY ==
--- NOTE | 2023-06-03 07:44 | CT_ITS ---
FINAL REPORT CLINICAL HISTORY: Generalized abdominal pain COMPARISON: 04/15/2023 FINDINGS: CT OF THE ABDOMEN AND PELVIS WITH CONTRAST Axial CT images of the abdomen and pelvis were obtained after the administration of oral and iv contrast. Coronal reformatted images were also obtained and reviewed.This study was performed with techniques to keep radiation doses as low as reasonably achievable (ALARA). Individualized dose reduction techniques using automated exposure control or adjustment of mA and/or kV according to the patient's size were employed. Abdomen: The lung bases are clear. The heart is normal in size. The liver has an unremarkable appearance, without evidence of mass or biliary ductal dilatation. The spleen is unremarkable. No adrenal mass is present. The pancreas has an unremarkable appearance. The kidneys are normal, without evidence of mass or hydronephrosis. The aorta is normal in caliber. There is no free fluid or adenopathy. There are interval postoperative changes of the anterior abdominal wall from hernia repair. Pelvis: The appendix is not well-visualized. The patient is status post hysterectomy. The urinary bladder is unremarkable. No inflammatory process is seen. There is no evidence of mass or adenopathy. There is no evidence of bowel obstruction. IMPRESSION: No evidence of acute intra-abdominal process. Reviewed, Interpreted and Dictated by Ike Tejeda III, MD Transcribed by Jayla Del Valle Authenticated and [facility]
[2023-06-03] MEDS: BARIUM SULFATE(READI-CAT2);450ML BOTTLE 450 ML PO (08:10)
[2023-06-03] MEDS: SODIUM CHLORIDE 0.9% 10ML SYR (RAD ONLY) 10 ML IV (08:10)
[2023-06-03] MEDS: IOPAMIDOL-370 (76%);100ML BOTTLE 75 ML IV (08:10)
== END 2023-06-03 23:59 ==
LOC: RAD 07:44
PROVIDERS: PCP Family Medicine; Visit Provider Surgery
DX: K46.9 Unspecified abdominal hernia without obstruction or gangrene; Z98.890 Other specified postprocedural states; Z87.19 Personal history of other diseases of the digestive system
CPT/HCPCS: 74177; Q9967

== ENCOUNTER 2023-06-18 09:16 | Outpatient (CLI) | payer MEDICARE, SELFPAY ==
[2023-06-18 09:45] LABS: Basophils # 0.1 K/mm3 (0-0.2); Basophils % 1.2 % (0.1-2.0); Eosinophils # 0.1 K/mm3 (0.0-0.4); Eosinophils % 1.5 % (0.1-12.0); Hematocrit 43.9 % (37.0-47.0); Hemoglobin 14.3 g/dL (12.2-16.2); Lymphocytes # 1.3 K/mm3 (0.7-4.5); Lymphocytes % 25.4 % (10-50); Mean Corpuscular HGB Conc 32.5 g/dL (31.8-35.4); Mean Corpuscular Hemoglobin 31.8 pg (27.0-31.2); Mean Corpuscular Volume 97.9 fl (81-99); Mean Platelet Volume 7.8 fl (7.4-10.4); Monocytes # 0.3 K/mm3 (0.1-1.0); Monocytes % 5.1 % (1.7-9.3); Neutrophils # 3.5 K/mm3 (1.8-7.8); Neutrophils % 66.7 % (37.0-80.0); Platelet Count 284 K/mm3 (142-424); Red Blood Count 4.49 M/mm3 (4.20-5.40); Red Cell Distribution Width 14.1 % (11.5-17.5); White Blood Count 5.2 K/mm3 (4.8-10.8)
[2023-06-18 10:22] LABS: Anion Gap 13.7 mEq/L (5-15); Blood Urea Nitrogen 11 mg/dl (7-17); Calcium 9.4 mg/dl (8.4-10.2); Carbon Dioxide 19 mmol/L (22.0-30.0); Chloride 113 mmol/L (98-107); Estimated Glomerular Filt Rate 88 ml/min (>60); GFR (African American) 107 ML/MIN (>60); Glucose 87 mg/dl (74-100); Potassium 3.7 mmoL/L (3.5-5.1); Sodium 142 mmol/L (136-145)
== END 2023-06-18 23:59 | disposition home or self-care (01) ==
LOC: LAB 09:17
PROVIDERS: PCP Nurse Practitioner Family; Visit Provider Surgery
DX: D17.21 Benign lipomatous neoplasm of skin and subcutaneous tissue of right arm (principal)
CPT/HCPCS: 36415; 80048; 85025

== ENCOUNTER 2023-07-01 08:04 | Day surgery (SDC) | payer MEDICARE, SELFPAY ==
[2023-06-28 10:14] VITALS: BMI 32.2
[2023-07-01] VITALS (9 sets, daily range): BP systolic 133–156; BP diastolic 70–114; PULSE 60–88; RESP 16–24; TEMP 35.6–36.3; O2SAT 95–100
[2023-07-01] MEDS: LACTATED RINGERS 1000ML 1,000 ML 25 ML IV (08:31)
--- NOTE | 2023-07-01 08:35 | P.PNANES_ITS ---
[facility] Disclaimer: The information contained in this section may have been updated after the patient was seen, as this information can be updated by other users. Medical History Fibromyalgia History of uterine cancer Surgical History History of hernia repair Hx of breast reduction, elective H/O: hysterectomy Family History Other Family history of cancer Social History Smoking Status: Never smoker alcohol intake: never substance use type: denies use current occupational status: unemployed Travel in the last 8 weeks: None household members: spouse housing: house [facility] Anesthesia Checklist Patient Identification Patient Identification: Arm Band and Verbal (Name & ) Structural Data Admitted From: Home Planned Operative Procedure/s: Lipoma on R shoulder Consent for Planned Operative Procedure(s) Verified: Yes NPO Status Verified Time NPO: 00:00 Chart Verification Results Verified: CBC and BMP Additional verifications Anesthesia Reactions: No Hx Blood Transfusions: No Blood Transfusion Reaction: No Airway Assessment Mallampati Score:: Class II C-Spine Mobility Assessed: Yes TMJ Mobility Assessed: Yes Dentition: Good Dentition Neurological Assessment Level of Consciousness: Awake Hx Seizures: No Numbness or tingling in extremities: No Anesthesia Plan Anesthesia Risk discussed: Yes Anesthesia Plan: Verified ASA Class: II Anesthesia Type: General
[2023-07-01] MEDS: CEFAZOLIN SODIUM 1 GM in 0.9 % SODIUM CHLORIDE 50 ML IV (10:50)
[2023-07-01] MEDS: LIDOCAINE 1% 10ML MDV 10 ML (11:03)
[2023-07-01] MEDS: ROPIVACAINE 0.5% 30ML VIAL 150 MG (11:03)
--- NOTE | 2023-07-01 11:36 | EXP.OP.NOTE ---
Date of procedure: 07/01/23 Pre-op Diagnosis:: Right Shoulder Lipoma Post-op Diagnosis:: Same Procedure performed:: Excision of lipoma from right anterior shoulder region (excisional length 4.5 cm) with complex closure Surgeon:: Ike East MD [employer] OPERATOR:: Pricila Hoffman Anesthesia: LMA Estimated blood loss (mL): 5 Operative findings:: Lobulated well-circumscribed lipoma down to and somewhat within the superficial deltoid muscle. Operative note:: Consent was obtained patient was taken to the operating room. She was positioned in supine position. Anesthesia was induced via LMA. The area was prepped and draped in the standard surgical fashion. Lesion was marked with a skin marker for planned incision along the normal skin lines. Skin incision was made. Superficial subcutaneous tissues were incised. Dissection was carried down to the subcutaneous fascia which was incised. Ultimately well-circumscribed lipomatous lesion was encountered. Using digital blunt dissection it was able to be freed somewhat. It was dissected free with some blunt Metzenbaum type dissection. It traversed down to the superficial deltoid muscles which were split and the remaining attachments were incised with electrocautery. Lesion was sent off as a specimen. There was good hemostasis. Local anesthetic was infiltrated. Muscle fibers were reapproximated with a couple of interrupted 2-0 Vicryl sutures. Fascia was closed with several interrupted 3-0 Vicryl sutures. Deep dermal tissues were reapproximated with interrupted 3-0 Vicryl. Skin was closed with 4-0 Monocryl in a subcuticular fashion. Dermabond and dressing was applied. Condition: stable Disposition: PACU Complications:: None immediately apparent
--- NOTE | 2023-07-01 11:46 | EXP.ANES.I ---
[facility] Anesthesia Record Part I Anesthesia Record I Intake, IV Amount: 700 Hydration: Adequate Estimated blood loss (mL): 10 Urine output (mL): 0 Blood Products used (#): none Blood Pressure: 134/90 SaO2: 95 Pulse Rate: 72 Airway Patency: Patent Respiratory Rate: 16 Temperature: 96.1 F Patient is:: Awake (Talking) and Stable Stable to PACU at:: 11:44
--- NOTE | 2023-07-01 17:23 | SUR.PHASEI ---
All charting and care in phase 1 was given by Nurse Srikanth Bustamante under the direct supervision of Kelly Juarez RN
--- NOTE | 2023-07-02 08:11 | EXP.ANES.II ---
[facility] Anesthesia Record Part II Anesthesia Record Part II Discharge Time: 11:59 Destination: Surgical Day Care (OP Surgery) PACU nurse assessment reviewed?: Yes Patient Condition:: Good Anesthesia Complications:: None Swallowing reflex intact?: Yes Airway Patency: Patent Cyanosis?: No Blood Pressure: 156/113 SaO2: 99 Respiratory Rate: 24 Pulse Rate: 68 Temperature: 96.1 F Mental Status: Alert & Oriented Pain level:: 0 Nausea and/or vomitting:: None Intake, IV Amount: 700 Hydration: Adequate
[2023-07-02 08:13] VITALS: BP 156/113; PULSE 68; RESP 24; TEMP 35.6; O2SAT 99
== END 2023-07-01 12:40 | disposition home or self-care (01) ==
PROVIDERS: PCP Nurse Practitioner Family; Visit Provider Surgery
PROC: (CPT 23076; principal; 2023-07-01 09:45)
DX: D17.21 Benign lipomatous neoplasm of skin and subcutaneous tissue of right arm (principal)
CPT/HCPCS: 23076; 96374; J2405

== ENCOUNTER 2023-09-22 13:07 | Emergency (ER) | payer MEDICARE, SELFPAY ==
[2023-09-22 13:08] VITALS: BP 149/111; PULSE 85; RESP 18; TEMP 36.8; O2SAT 99; BMI 32.3
[2023-09-22] MEDS: AMOXICILLIN/CLAVULANATE POTASSIUM 875/125MG TABLET 1 EACH PO (13:29)
[2023-09-22] MEDS: TET/DIPHTH/PERT-ADULT 0.5ML SYRINGE 0.5 ML IM (13:29)
[2023-09-22] MEDS: NEOSPORIN OINTMENT 0.9GM UDP 1 EACH TP (13:30)
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
[2023-09-22 14:01] VITALS: BP 143/88; PULSE 81; RESP 18; TEMP 36.9; O2SAT 98
== END 2023-09-22 13:55 | disposition home or self-care (01) ==
PROVIDERS: Emergency Provider Student in an Organized Health Care Education/Training Program; PCP Nurse Practitioner Family
DX: S61.451A Open bite of right hand, initial encounter (principal); W54.0XXA Bitten by dog, initial encounter; Z23 Encounter for immunization
CPT/HCPCS: 90471; 90715; 99283

== ENCOUNTER 2025-01-26 10:37 | Emergency (ER) | payer MEDICARE, SELFPAY ==
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
--- NOTE | 2025-01-26 10:42 | HMH.EDGENADL ---
Discharge Plan Disposition Patient Disposition: Home, Self-Care Condition: Good Prescriptions Prescriptions: New meloxicam 15 mg tablet 15 mg PO DAILY PRN (Reason: pain) Qty: 30 0RF lidocaine 5 % adhesive patch,medicated 1 patch topical Q24H Qty: 15 0RF Rx Instructions: leave on most painful area for up to 12 hrs No Action amitriptyline 25 mg tablet 25 mg PO DAILY Qty: 90 3RF cyclobenzaprine 10 mg tablet 10 mg PO TID PRN (Reason: muscle spasm) Qty: 60 3RF topiramate [Topamax] 100 mg Tablet 100 mg PO BID hydrocodone-acetaminophen 5-325 mg Tablet 1 - 2 tab PO Q6H PRN (Reason: Pain) Qty: 11 0RF acetazolamide 500 mg capsule, extended release 500 mg PO BID Patient Comments: TAKE 1 CAPSULE BY MOUTH TWICE DAILY. THIS IS IN ADDITION TO THE 250 MG TWICE DAILY acetazolamide 250 mg tablet 250 mg PO DAILY Patient Comments: TAKE 1 TABLET BY MOUTH ONCE DAILY FOR 2 WEEKS THEN INCREASE TO TWICE DAILY THEREAFTER amoxicillin-pot clavulanate 875-125 mg tablet 1 tab PO BID 10 Days Qty: 20 0RF Referrals Follow up/Referrals: Norma Remy APRN [Primary Care Provider, Medical] - See instructions Vazquez Comer DO [Staff Physician, Orthopedics] - See instructions Activity Restrictions/Add. Instructions Additional Instructions/Restrictions: No fracture on XRAY. Do not take ibuprofen with the meloxicam. You may take Tylenol 1000 mg every 6 hours as needed for pain in addition to above. Please rest and apply ice (20 minutes at a time, 3 times a day). Use compression with an JOCELYN wrap if possible. Elevate the affected (area above the level of the heart) as often as possible. Follow-up with orthopedics, call them to make an appointment. Gentle pendulum range of motion exercises like we talked about at least three times daily. Return if any worsening pain numbness weakness or tingling. Clinical Impressions Clinical Impression: Right rotator cuff tear arthropathy Print Language Print Language: Khmer Discharge ED Provider: Julio Thomason General Adult HPI General Chief complaint: Extremity Injury, Upper Stated complaint: right shoulder pain Time Seen by Provider: 01/26/25 10:42 History of Present Illness HPI narrative: Patient is a 54-year-old female with no significant past medical history. She presents today after an injury that occurred 1 month ago. She reports she was trying to move a refrigerator out and the door came off and she stumbled backwards landing into a cabinet hitting her head and her right shoulder. She did not lose consciousness. She does not take any blood thinners. She reports feeling off with some brain fog and headaches, but that has been improving over the last couple of weeks. What has not been improving is concern for her right shoulder. She reports worsening dull aches in her right shoulder, made worse by movement. She denies any numbness tingling or weakness. She denies any reinjury to the area. Sometimes the pain radiates down the humerus, but she is only tender over the shoulder. She denies any chest pain shortness of breath abdominal pain neck pain or back pain that is new. She has tried Lidoderm patches And various various homeopathic remedies at home with minimal relief. Denies fevers or skin color changes over the area. Related Data Home Medications ?Medication ?Instructions ?Recorded ?Confirmed acetazolamide 250 mg tablet 250 mg PO DAILY eye pressure 04/15/23 07/30/23 acetazolamide 500 mg 500 mg PO BID 04/15/23 07/30/23 capsule,extended release topiramate 100 mg tablet (Topamax) 100 mg PO BID 04/19/23 07/30/23 Previous Rx's ?Medication ?Instructions ?Recorded amitriptyline 25 mg tablet 25 mg PO DAILY #90 tabs 12/14/19 cyclobenzaprine 10 mg tablet 10 mg PO TID PRN muscle spasm #60 02/06/21 tabs hydrocodone 5 mg-acetaminophen 325 1 - 2 tab PO Q6H PRN Pain #11 tabs 07/01/23 mg tablet amoxicillin 875 mg-potassium 1 tab PO BID 10 days #20 tabs 09/22/23 clavulanate 125 mg tablet lidocaine 5 % topical patch 1 patch topical Q24H #15 ea 01/26/25 meloxicam 15 mg tablet 15 mg PO DAILY PRN pain #30 tabs 01/26/25 Allergies Allergy/AdvReac Type Severity Reaction Status Date / Time NSAIDS (Non-Steroidal Allergy Unknown Unknown Verified 01/26/25 10:50 Anti-Inflamma allergy reaction gabapentin AdvReac Severe Joint Pain Verified 01/26/25 10:50 pregabalin (From Lyrica) AdvReac Blurry Verified 01/26/25 10:50 Vision [facility] Disclaimer: The information contained in this section may have been updated after the patient was seen, as this information can be updated by other users. Medical History Fibromyalgia History of uterine cancer Surgical History History of hernia repair Hx of breast reduction, elective H/O: hysterectomy Family History Other Family history of cancer Social History Smoking Status: Never smoker alcohol intake: never substance use type: denies use current occupational status: unemployed Travel in the last 8 weeks?: None household members: spouse housing: house Have you lived/traveled outside US in past 30 days?: No Contact w/someone who lives/traveled outside US past 30 days?: No Exposure to someone with infectious disease in past 14 days?: No Do you have a fever (greater than 100.4 F or 38 C)?: No Have you tested positive for COVID-19?: No Exposed to someone with COVID-19 in past 14 days?: No Do you have a sore throat?: No Do you have a cough?: No Do you have any weakness?: No Do you have any diarrhea?: No Are you experiencing any unusual bleeding?: No Do you have any muscle aches/pain?: No Do you have any abdominal pain?: No Are you experiencing loss of taste or smell?: No Other Medical History Have you received the Flu Vaccine for this season: No Have you received the Pneumonia Vaccine: No ROS Obtained: Yes All systems reviewed & no additional complaints except as documented Physical Exam General General appearance: alert and in no apparent distress Head Head exam: atraumatic and normocephalic Eye Eye exam: Present PERRL and EOMI ENT ENT exam: Present normal oropharynx Neck Neck exam: Present normal inspection, full ROM and trachea midline; Absent tenderness Chest Chest inspection: Present normal inspection and symmetric chest wall rise; Absent tenderness Respiratory Respiratory exam: Present normal lung sounds bilaterally; Absent stridor Cardiovascular Cardiovascular exam: Present regular rate and normal rhythm Abdominal Exam Abdominal exam: Present soft; Absent distention or tenderness Extremities Exam Extremities exam: Present full ROM and tenderness (Tender to palpation over the right shoulder girdle mildly. Positive empty can test, negative pushoff) Neurological Exam Neurological exam: Present alert and oriented X3 Psychiatric Psychiatric exam: Present normal mood Skin Skin exam: Present warm and dry Medical Decision Making Medical Records Screening: Per USPSTF and CDC recommendations, given the prevalence of disease in our region, it is our hospital?s policy to screen for HIV and viral Hepatitis for all patients aged 18 and over and those with ongoing risk factors. Ryder Inquiry Pt receiving controlled substance: No Vital Signs: 01/26/25 10:45 Temperature 98.5 F Temperature Source Oral Pulse Rate [Left Brachial] 92 H Respiratory Rate 16 Blood Pressure [Left Arm] 147/89 H Blood Pressure Mean [Left Arm] 108 Blood Pressure Source [Left Arm] Automatic Cuff Blood Pressure Position [Left Arm] Sitting 02 Sat by Pulse Oximetry 98 Oxygen Delivery Method Room Air Orders (Tests/Meds): ED MEDICATIONS Discontinued Medications Generic Name Dose Route Start Last Admin Trade Name Ariella PRN Reason Stop Dose Admin Acetaminophen 1,000 mg 01/26/25 11:00 01/26/25 11:12 Acetaminophen 500mg Tab PO 01/26/25 11:01 1,000 mg ONCE ONE Administration Ketorolac Tromethamine 15 mg 01/26/25 11:00 01/26/25 11:12 Ketorolac 15mg/Ml Vial IM 01/26/25 11:01 15 mg ONCE ONE Administration Lidocaine 1 each 01/26/25 11:00 01/26/25 11:12 Lidocaine 5% Transdermal Patch TD 01/26/25 11:01 1 each ONCE ONE Administration ORDERS Category Date Time Status XR shoulder RT min 2V Stat Exams 01/26/25 11:00 Taken Medical Decision Narrative: Patient is a 54-year-old female with no significant past medical history presenting today for right shoulder pain that occurred after an injury about a month ago. She reports persistent pain in the right shoulder worse with range of motion. On exam, she is warm and well-perfused with full pulses and brisk cap refill and hemodynamically stable. The overlying skin is well-appearing, no suspicion for septic arthritis or otherwise given full range of motion absence of fevers and skin findings. She is closed injury and neurovascularly intact distally with good radial and ulnar pulses radial median and ulnar nerve motor and sensory intact. Axillary nerve is intact. She has a positive empty can test with negative pushoff. I have a high suspicion for rotator cuff pathology. Educated on gentle range of motion exercises, RICE protocol, multimodal pain control. Independently interpreted plain film to demonstrate no fracture or dislocation. Ortho follow-up. My clinical impression was discussed with the patient and all questions were answered. Return precautions were given, with verbalization of understanding and agreement of this plan. Any pending results are to be followed up online. Critical Care Critical Care Time Critical Care Time: No
[2025-01-26 10:45] VITALS: BP 147/89; PULSE 92; RESP 16; TEMP 36.9; O2SAT 98; BMI 25.0
--- OUTSIDE RECORDS SUMMARY | 2025-01-26 10:48 | XMS_ITS | Encounter Summary ---
Author Organization [facility] Address [address] [place] [id number] Care Team Providers Care Flatwork Finisher Hand Name Role Phone Mckinley GUZMAN MD Deion Primary Care Provide r Source Comments This [...] release of HIV test results or diagnoses. [id number] Reason for Visit * Reason Comments Medication Therapy Management Nurte Encounter Details Date Type Department Care Team (Late st Contact Info) Description 12/11/2024 Telephone [facility] [address] [place] [id number] Pau Merrill vinnie Medication Therapy Management (Nurtec) Social History Tobacco Use Types Packs/Day Years Used Date Smoking Tobacco: Former Cigarettes Q uit: 02/2005 Passive Smoke Exposure: Past Smokeless Tobacco: Never Alcohol Use Standard Drinks/Week Comments Not Currently 0 (1 standard drink = 0.6 oz pur e alcohol) 1 Jello Shot [place] PHQ-2 Answer Date Recorded PHQ-2 Total Score 0 10/29/2023 Yearly Questionnaire Answer Date Record ed Do you need any assistance w ith obtaining housing, meals, medication, transportation or medical equipment? No 10/28 Assistance needed for: Not on file Yearly Questionnaire Answer Date Record ed Do [...] on file documented as of this encounter Miscellaneous Notes * Telephone Encounter - Pau Merrill RPh - 12/11/2024 11:53 AM EDT [facility] Note Prescription received for: [place] Insurance Plan: Dave Joseph [place] required, received paid claim, pt has copay of $12.15. Reviewed indication, directions, administration, side effects, storage, (if applicable). Method of delivery: ship via UPS by end of day 12/11. Patient should receive on or after 12/12. Patient aware to call Specialty Pharmacy when due for next refill. documented in this encounter Plan of Treatment Not on file documented as of this encounter Visit Diagnoses Not on filedocumented in this encounter Additional Health Concerns Assessment Noted Time PHQ-9 Depression Total Score: 17 023 12:00 PM EDT documented as of this encounter Care Teams Flatwork Finisher Hand Relationship Specialty Start Date End Date Deion Sen III, MD [address] [id number] PCP - General Family Medicine 08/31/21 documented as of this encounter
--- OUTSIDE RECORDS SUMMARY | 2025-01-26 10:48 | XMS_ITS | Clinical Summary ---
Author Organization [facility] Address [facility] [address] [place] [address] Care Team Providers Care Cargo Handler Name Role Phone Unavailable Primary Care Provider Unavailabl e Social History Tobacco Use Types Packs/Day Years Used Date Smoking Tobacco: Never Assessed Comments Unknown Sex and Gender Information Value Date Recorded Sex Assigned at Not on file Legal Sex Female 8:22 PM EDT Gender Identity Not on file Sexual Orientation Not on file Plan of Treatment Health Maintenance Due Date Last Done Comments DTap,Tdap,and Td (1 - Tdap) 06/03/1983 Pap Screening 06/01/2010 2007 Mammogram Screening 2012 Colonoscopy 2017 Pneumococcal 50+ (1 of 1 - PCV) 2022 Shingrix (#1) 2022 Influenza Vaccine (#1) 2024 RSV Vaccine (60+ or ) (1 - 1-dose 75+ series) 06/03/2047 HPV Aged Out No longer eligi ble based on patient's age to complete this topic Meningococcal conjugate stu nt 4 (MCV4) Aged Out No longer eligible b ased on patient's age to complete this topic RSV Immunization (<20 months) Aged Out No longer eligible based on patient's age to complete this topic Procedures Procedure Name Priority Date/Time Associated Diagnosis Comments CYTOLOGY CHEESE PRODUCTION SUPERVISOR Routine 2007 12:00 AM EDT from Last 3 Months or Most Recently Relevant to Health Maintenance Results * Cytology CHEESE PRODUCTION SUPERVISOR (2007 12:00 AM EDT) 2007 06/04/2007 8:2 3 AM EDT [facility]ative [facility] - 06/06/2007 8:57 AM EDT CYTOLOGY GYNECOLOGICAL REPORT Name: MARYCRUZ LEE EPI#: [id number] [facility]#: [id number] Case #: [id number] Final Cytologic Diagnosis A. Thinprep cervical endocervical vaginal: Adequacy: Satisfactory for evaluation, endocervical transformation zone component present. Interpretation: Negative for intraepithelial lesion or malignancy. This specimen has been analyzed by the ThinPrep Imaging System (iProcure.), an automated imaging and review system, which assists the stoker mechanic and/or pathologist in evaluation of cells on Thinprep Pap tests. Electronically Signed Out By MICHAEL Romero(ASCP) Source of Specimen(s) A: Thinprep cervical endocervical vaginal Clinical History Menstrual History: Not stated Signed out at [facility], [address] [place], [place] [id number] [facility] [employer] Non-Formatted Report Yoly GUNTER PATHOLOGY/CYTOLOGY ORDERABLES Final Result [address] [address] from Last 3 Months or Most Recently Relevant to Health Maintenance
--- OUTSIDE RECORDS SUMMARY | 2025-01-26 10:48 | XMS_ITS | Encounter Summary ---
Author Organization [facility] [address] Care Team Providers Care Ed Physicians Name Role Phone Justin Redman MD Primary Care Provider Jose Bailey MD Unavailable Unavailabl e Reason for Visit * Reason Onset Date Comments Medication Refill 04/16/2017 Encounter Details Date Type Department Care Team (Late st Contact Info) Description 04/16/2017 Refill [facility] [address] [place] [address] Giorgi Arias MD [address] [facility] [address] [place] [address] Medication Refill Social History Tobacco Use Types Packs/Day Years Used Date Smoking Tobacco: Former Smokeless Tobacco: Never Alcohol Use Standard Drinks/Week Comments Yes 0 (1 standard drink = 0.6 oz pur e alcohol) once month Sexually Active Control Partners Comments Yes Surgical Male hysterectomy Comments No Sex and Gender Information Value Date Recorded Sex Assigned at Not on file Legal Sex Female 5:14 AM EDT Gender Identity Not on file Sexual Orientation Not on file documented as of this encounter Plan of Treatment Not on file documented as of this encounter Visit Diagnoses Diagnosis Menopausal hot flushes Symptomatic menopausal or female climacteric states documented in this encounter Additional Health Concerns Infection Onset Date Last Indicated Resolved Time R/O COVID-19 03/27/2021 03/27/2021 03/27/2021 2:22 PM EST documented as of this encounter Care Teams Ed Physicians Relationship Specialty Start Date End Date Justin Redman MD PCP - General Family Medicine 05/07/13 Jose Escudero MD Referring Physician Obstetrics & Gynecology 09/01/13 documented as of this encounter
--- OUTSIDE RECORDS SUMMARY | 2025-01-26 10:48 | XMS_ITS | Clinical Summary ---
Author Organization [facility] Address [address] [place] [address] Care Team Providers Care Guinea Pig Breeder Name Role Phone Mckinley GUZMAN MD, Deion Primary Care Provide r Source Comments This information has been disclosed to you from confidential records protectedfrom disclosure by state law. You shall make no further disclosure of thisinformation without the specific, written, and informed release of theindividual to whom it pertains, or as otherwise permitted by law. A generalauthorization for the release of medical or other information is not sufficientfor the purposes of therelease of HIV test results or diagnoses. [id number] Allergies Active Allergy Reactions Criticality Noted Date Comments Gabapentin Swelling High 02/06/2021 Other Reaction(s): Joint Pain Nsaids (Non-Steroidal Anti-Inflammatory Drug) Other (See Comments) Medium 07/31/2013 States can't take b/c ulcer Stomach Ulcer Other Reaction(s): Not available Other Reaction(s): Unknown allergy reaction Other Reaction(s): vomiting Other Reaction(s): Not available, vomiting Non-steroidal anti-inflammatory agent (product) Non-steroidal anti-inflammatory agent (substance) Pregabalin Other (See Comments) Low 05/11/2021 Vision changes Other reaction(s): Other Other Reaction(s): other Lyrica Medications mlbxejr-sams-ytdvl- oreg-capryl 100 mg-150 mg- 50 mg-150 mg Cap Take by mouth. Active APPLE CIDER VINEGAR ORAL Take by mouth. Active multivitamin (THERAGRAN) tablet Take by mouth daily. Active L.ac,bul,par,rha-B. ani,junaid-inu (PROBIOTIC DIGEST SUPP, 6-STRN,) 10 billion cell -100 mg Cap Take by mouth. Active cyclobenzaprine (FLEXERIL) 10 MG tabletIndications:C ervical spondylosis without myelopathy,Idiopath ic peripheral neuropathy,Myofasci al pain dysfunction syndrome Take 1 tablet (10 mg total) by mouth 3 times a day as needed for Muscle spasms. 270 tablet 4 Active ondansetron (ZOFRAN-ODT) 4 MG disintegrating tablet Take 1 tablet (4 mg total) by mouth every 8 hours as needed for Nausea. 20 tablet 11 5 Active spironolactone (ALDACTONE) 100 MG tablet Take 3 tablets (300 mg total) by mouth daily. 270 tablet 1 5 Active acetaZOLAMIDE (DIAMOX) 500 mg capsule Take 1 capsule (500 mg total) by mouth 2 times a day. 180 capsule 1 5 Active topiramate (TOPAMAX) 100 MG tablet Take 1 tablet (100 mg total) by mouth 2 times a day. 180 tablet 1 5 Active rimegepant 75 mg TbDL Take 1 tablet (75 mg total) by mouth daily as needed (migraine). No more than 1 per 24 hours. 16 tablet 6 12/11/2024 12:26 PM EDT 5 Active Active Problems Problem Noted Date Diagnosed Date Fibromyalgia 01/14/2025 Sinusitis 01/14/2025 Occipital neuralgia 01/14/2025 Intractable chronic migraine without aura and without status migrainosus 12/23/2024 Tobacco abuse 09/15/2013 Encounters Date Type Department Care Team Description 12/23/2024 Telephone [facility] Neurology at [facility] [place] [address] [facility] [address] [place] [address] Clyde Dove LPN Appointment 12/11/2024 8:30 AM EDT Office Visit [facility] Neurology at [facility] [address] [facility] [address] [place] [address] Odessa Betts MD Intractable chronic migraine without aura and without status migrainosus (Primary Dx) 12/11/[address] [facility] [address] [place] [address] Pau Merrill, vinnie Medication Therapy Management (Nurtec) 12/10/2024 Telephone [facility] Neurology at [facility] [address] [facility] [address] [place] [address] Clyde Dove LPN Medication Management 10/30/2024 Orders Only [facility] Neurology at [place] [id number] [facility] [address] [place] [phone] Malika Gusman CNP 10/30/2024 Refill [facility] Neurology at [address] [place] [address] Malika Gusman CNP from Last 3 Months Social History Tobacco Use Types Packs/Day Years Used Date Smoking Tobacco: Former Cigarettes Q uit: 02/2005 Passive Smoke Exposure: Past Smokeless Tobacco: Never Tobacco Cessation:Counseling Given: Not Answered Alcohol Use Standard Drinks/Week Comments Not Currently 0 (1 standard drink = 0.6 oz pur e alcohol) 1 Jello Shot [place] PHQ-2 Answer Date Recorded PHQ-2 Total Score [...] on file Sexual Orientation Not on file Last Filed Vital Signs Vital Sign Reading Time Taken Comments Blood Pressure 127/88 09/11/2024 2:22 PM EDT Pulse 73 09/11/2024 2:22 PM EDT Temperature 36.3 C (97.3 F) 01/09/2022 10:06 AM EST Respiratory Rate 16 06/08/2024 1:06 PM EDT Oxygen Saturation 99% 09/11/2024 2:22 PM EDT Inhaled Oxygen Concentration 99% 09/11/2024 2 :22 PM EDT Weight 72.1 kg (159 lb) 06/08/2024 1:06 PM EDT Height 152.4 cm (5') 06/08/2024 1:06 PM EDT Body Mass Index 31.05 06/08/2024 1:06 PM EDT Plan of Treatment Health Maintenance Due Date Last Done Comments Abnormal Colonoscopy Follow Up 1972 Diabetes Screening 1972 Hepatitis C Screening (MyChart) 1972 HIV Screening 1990 Immunization: Hepatitis B (1 of 3 - 19+ 3-dose series) 06/03/1991 Mammogram (MyChart) 2012 Cologuard (FIT-DNA) 2017 Colonoscopy 2017 Colorectal Cancer Screening (MyChart) 2017 Stool Testing (gFOBT) 2017 Immunization: Pneumococcal ( 1 of 1 - PCV) 2022 Immunization: Zoster (1 of 2) 2022 Immunization: COVID-19 (1 - season) 2024 Immunization: Influenza (MyC vargas) (#1) 2024 Depression Screening 10/28/2024 10/29/2023, 09/18/2022, 07/13/2022, Additional history exists Immunization: DTaP/Tdap/Td ( 3 - Td or Tdap) 09/21/2033 09/22/2023, 01/23/2012 Insurance MEDICARE A AND B MEDPAY Care Teams Guinea Pig Breeder Relationship Specialty Start Date End Date Deion Sen III, MD [address] [place] [address] PCP - General Family Medicine 08/31/21
--- OUTSIDE RECORDS SUMMARY | 2025-01-26 10:48 | XMS_ITS | Clinical Summary ---
Author Organization [facility] Address [address] [place] [address] Phone Care Team Providers Care Water Quality Control Engineer Name Role Phone Justin Redman MD Primary Care Provider Jose Bailey MD Unavailable Unavailabl e Allergies Active Allergy Reactions Criticality Noted Date Comments Nsaids (Non-Steroidal Anti-Inflammatory Drug) 07/31/2013 Stomach Ulcer Medications lansoprazole (PREVACID) 30 mg capsule Take by mouth daily. Active rizatriptan (MAXALT-PARALEGAL LEGAL SECRETARY) 10 mg disintegrating tablet Take 10 mg by mouth once as needed for Migraine. May repeat in 2 hours if needed Active estradiol (ESTRACE) 1 mg Oral TabletIndications: Menopausal hot flushes TAKE 1 TABLET BY MOUTH ONCE DAILY 30 Tab 5 04/26/19 18 Active Additional Information Patient not taking.Reason: Pt electing to not take the medication, Reported on 10/11/2023 traMADoL (ULTRAM-ER) 100 mg Oral Tablet Sustained Release 24 hr Take 100 mg by mouth 3 times daily. Active cyclobenzaprine (FLEXERIL) 10 mg Oral Tablet TAKE 1 TABLET BY MOUTH 3 TIMES DAILY NEEDED FOR MUSCLE SPASM 02/07/20 21 Active traMADoL (ULTRAM) 50 mg Oral Tablet Take 100 mg by mouth 3 times daily as needed. 02/23/20 21 Active zolpidem (AMBIEN) 5 mg Oral Tablet Take 5 mg by mouth nightly as needed. for sleep 12/28/20 21 Active pantoprazole (PROTONIX) 40 mg Oral Tablet, Delayed Release (E.C.) Take 40 mg by mouth daily. Active topiramate (TOPAMAX) 50 mg Oral Tablet Take 1 Tablet by mouth 2 times daily. 180 Tablet 1 04/28/19 Active Active Problems Problem Noted Date Diagnosed Date Hip pain, right 08/10/2015 Menopausal hot flushes 09/30/2013 Obesity (BMI 30-39.9) 09/15/2013 Gastric ulcer 09/15/2013 Tobacco abuse 09/15/2013 EIN (endometrial intraepithelial neoplasia) 07/27 Resolved Problems Problem Noted Date Diagnosed Date Resolved Date Menorrhagia 08/20/2013 09/30/2013 Surgical History Surgery Date Site/Laterality Comments TUBAL LIGATION 02/25/1993 - 02/24/1994 TONSILLECTOMY DILATION AND CURETTAGE OF UTERUS 08/20/13 HYSTERECTOMY 09/15/2013 Bilateral DAVINCI ROBOTIC TOTAL HYSTERECTOMY BILATERAL SALPINGO- OOPHORECTOMY CYSTOSCOPY ; Surgeon: Tello Griffiths MD; Location: [facility]; Service: Gynecology Oncology CYSTOSCOPY 09/15/2013 Surgeon: Tello Griffiths MD; Location: [facility]; Service: Gynecology Oncology BREAST SURGERY 08/26/2015 - 09/25/2015 BREAST REDUCTION ANTERIOR CRUCIATE LIGAMENT REPAIR 01/26/2016 - 02/25/2016 Medical History Medical History Date Comments Ulcer stomach Menarche at age 12. Depression Heart murmur not heard since age 12 Herniated disc Back pain STD (sexually transmitted disease) Bacterial vaginosis Heartburn Headache(784.0) Obesity (BMI 30-39.9) 09/15/2013 Gastric ulcer 09/15/2013 Tobacco abuse 09/15/2013 Family History Medical History Relation Name Comments COPD Father Breast Cancer Maternal Aunt Cancer Maternal Aunt 1 with endomet rial (53y/o) and another with endometrial (44y/o) and breast (43y/o) Migraines Maternal Aunt brain aneurysm Maternal Aunt Cancer Other matermaternal great aunt end ometrial Breast Cancer Paternal Aunt Cancer Sister Cervical Relation Name Status Comments Brother Alive Father Alive Maternal Aunt Alive Mother Alive Other matermaternal great aunt Paternal Aunt Sister Alive Social History Tobacco Use Types Packs/Day Years Used Date Smoking Tobacco: Former Smokeless Tobacco: Never Alcohol Use Standard Drinks/Week Comments Yes 0 (1 standard drink = 0.6 oz pur e alcohol) once month Education Answer Date Recorded What is the highest level of school you have completed or the highest degree you have received? Some college, no degree 04/27/2021 Sexually Active Control Partners Comments Yes Surgical Male hysterectomy Comments No Sex and Gender Information Value Date Recorded Sex Assigned at Not on file Legal Sex Female 5:14 AM EDT Gender Identity Not on file Sexual Orientation Not on file Obstetrics History Para Term AB IAB SAB Ectopic Multiple Livin g Live Births 3 2 2 0 1 1 2 2 Date Outcome GA Total Labor Labor/2nd/3rd Weight Sex Type Anes PTL Radha A1 A5 Name Clin SAB Term Vag-S pont Living Term Vag-S pont Living Last Filed Vital Signs Vital Sign Reading Time Taken Comments Blood Pressure 110/80 04/27/2021 10:57 AM EST Pulse 102 04/27/2021 10:57 AM EST Temperature 36.5 C (97.7 F) 04/27/2021 10:57 AM EST Respiratory Rate 16 03/27/2021 3:44 PM EST Oxygen Saturation 98% 04/27/2021 10:57 AM EST Inhaled Oxygen Concentration - - Weight 68 kg (150 lb) 04/02/2024 11:06 AM EST Height 152.4 cm (5') 04/02/2024 11:06 AM EST Body Mass Index 29.29 04/02/2024 11:06 AM EST Plan of Treatment Health Maintenance Due Date Last Done Comments Annual Wellness Exam 06/03/1975 Hepatitis B Vaccine (1 of 3 - 19+ 3-dose series) 06/03/1991 Cologuard 2017 Colon Cancer Screening 2017 Colonoscopy 2017 FIT 2017 Sigmoidoscopy 2017 Virtual Colonography 2017 Pneumococcal Vaccine 50+ (1 of 1 - PCV) 2022 Zoster (1 of 2) 2022 COVID-19 Vaccine (1 - 2024- season) 2024 Influenza Vaccine (#1) 2024 Breast Cancer Screening 04/02/2026 04/02/19 25, 08/01/2015, 01/13/2015, Additional history exists DTaP/TDaP/Td (3 - Td or Tdap) 09/21/2033 09/22/2023, 01/23/2012 Meningococcal B Vaccine Aged Out No l onger eligible based on patient's age to complete this topic Procedures Procedure Name Priority Date/Time Associated Diagnosis Comments MM MAMMO DIGITAL RAIN SCREEN BILAT Routine 04/02/2024 11:19 AM EST Encounter for screening mammogram for malignant neoplasm of breast from Last 3 Months or Most Recently Relevant to Health Maintenance Results * MM MAMMO DIGITAL RAIN SCREEN BILAT (04/02/2024 11:19 AM EST) Anatomical Region Laterality Modality Breast Bilateral Mammography 04/02/2024 11:1 9 AM EST Impressions 04/03/2024 9:09 AM EST Benign ([id number]) RECOMMENDATION: Routine Screening Mammogram in 1 Year Bilateral No additional recommendation No additional laterality COMMENTS: Narrative 04/03/2024 9:09 AM EST EXAM: MM MAMMO DIGITAL RAIN SCREEN BILAT EXAM DATE: 04/02/2024 11:19 AM INDICATION: Z12.31-Encounter for screening mammogram for malignant neoplasm of [id number] COMPARISON STUDIES: Outside images from [facility] from November 2021 08/01/2015 MM MAMMO DIGITAL SCREENING W CAD BILAT at [facility] 01/13/2015 MM MAMMO DIGITAL DIAGNOSTIC W CAD LEFT at [facility] 07/20/2014 MM MAMMO DIGITAL DIAGNOSTIC W CAD BILAT at [facility] TISSUE DENSITY: There are scattered areas of fibroglandular density. FINDINGS: Stable postreduction changes with distortion. Benign-appearing stable nodularity upper outer quadrant of both breasts probably intramammary lymph nodes. No suspicious new mass or calcification Procedure Note Eduardo Lima MD - 04/03/2024 EXAM: MM MAMMO DIGITAL RAIN SCREEN BILAT EXAM DATE: 04/02/2024 11:19 AM INDICATION: Z12.31-Encounter for screening mammogram for malignantneoplasm of [id number] COMPARISON STUDIES: Outside images from [facility] from November202108/01/2015 MM MAMMO DIGITAL SCREENING W CAD BILAT at [facility] 01/13/2015 MM MAMMO DIGITAL DIAGNOSTIC W CAD LEFT at [facility] 07/20/2014 MM MAMMO DIGITAL DIAGNOSTIC W CAD BILAT at [facility] TISSUE DENSITY: There are scattered areas of fibroglandular density. FINDINGS: Stable postreduction changes with distortion. Benign-appearingstable nodularity upper outer quadrant of both breasts probably intramammarylymph nodes. No suspicious new mass or calcification IMPRESSION: Benign ([id number]) RECOMMENDATION: Routine Screening Mammogram in 1 Year Bilateral No additional recommendation No additional laterality COMMENTS: Deion Sen III, IMPayam MAMMOGRAPHY ORDERABLES Final Result from Last 3 Months or Most Recently Relevant to Health Maintenance Insurance [place]ICARE [place] Advance Directives For more information, please contact: [phone] * Full Code (Latest Code Status on File) Date Activated Date Inactivated Comments 09/15/2013 4:31 PM 09/16/2013 9:38 PM Care Teams Water Quality Control Engineer Relationship Specialty Start Date End Date Justin Redman MD PCP - General Family Medicine 05/07/13 Jose Escudero MD Referring Physician Obstetrics & Gynecology 09/01/13
--- OUTSIDE RECORDS SUMMARY | 2025-01-26 10:48 | XMS_ITS | Referral Summary ---
Author Organization [facility] ([place], [place], [place], [place], [place]) Address [address] [place] [address] Care Team Providers Care Installer Helper Name Role Phone Deion Sen MD Primary Care Provider + Allergies No known active allergies Medications topiramate (TOPAMAX) 100 MG tablet Take 100 mg by mouth 3 (three) times daily. Active cyclobenzaprine (FLEXERIL) 10 MG tablet Take 10 mg by mouth 3 (three) times daily. Active Lactobacillus acidophilus (Probiotic) 10 billion cell Cap Take 1 capsule by mouth daily. Active lansoprazole (PREVACID) 30 MG capsule Take 30 mg by mouth daily. Active Missing or Non-Formulary Medication 2 (two) times daily Tumeric 800 mg . Active Social History Tobacco Use Types Packs/Day Years Used Date Smoking Tobacco: Former Cigarettes 1.5 20 1 987 - 2007 Smokeless Tobacco: Never Food Insecurity Answer Date Recorded Food run out past 12 months Not on file 02/25 Food did not last past 12 months Not on file 03/15/2023 Employment Answer Date Recorded Help finding and keeping a job Not on file 0 03/15/2023 Family and Community Support Answer Ole e Recorded Help with Day to Day Activities Not on file 03/15/2023 Feeling Lonely or Isolated Not on file 03/15 Educational Attainment Answer Date Margarito rded Speak language other than Syrian at home Not on file 03/15/2023 Want help with school or training Not on file 03/15/2023 Substance Use Answer Date Recorded Used prescription meds for non-medical reasons N ot on file 03/15/2023 Used illegal drugs past 12 months Not on file 03/15/2023 Comments Unknown Sex and Gender Information Value Date Recorded Sex Assigned at Not on file Legal Sex Female 7:53 PM CDT Gender Identity Not on file Sexual Orientation Not on file Last Filed Vital Signs Vital Sign Reading Time Taken Comments Blood Pressure 135/66 02/28/2022 1:45 PM EST Pulse 60 02/28/2022 2:00 PM EST Temperature 36.5 C (97.7 F) 02/28/2022 10:52 AM EST Respiratory Rate 20 02/28/2022 10:52 AM EST Oxygen Saturation 97% 02/28/2022 2:00 PM EST Inhaled Oxygen Concentration - - Weight 78.5 kg (173 lb) 02/28/2022 10:52 AM EST Height 152.4 cm (5') 02/28/2022 10:52 AM EST Body Mass Index 33.79 02/28/2022 10:52 AM EST Plan of Treatment Not on file Insurance MEDICARE PART A B Care Teams Installer Helper Relationship Specialty Start Date End Date Deion Sen MD PCP - General Family Medicine 02/28/22
--- OUTSIDE RECORDS SUMMARY | 2025-01-26 10:48 | XMS_ITS | Clinical Summary ---
Author Organization [facility] ([place], [place], [place], [place], [place]) Address [address] [place] [address] Care Team Providers Care Combination Machine Tender Name Role Phone Deion Sen MD Primary [...] Date Margarito rded Speak language other than Togolese at home Not on file 03/15/2023 Want [...] 02/28/2022 10:52 AM EST Plan of Treatment Health Maintenance Due Date Last Done Comments Medicare Initial AWV [id number] CT Colonography 1972 Colonoscopy 1972 Colorectal Cancer Screening 1972 FOBT/FIT 1972 Fit-DNA (Cologuard) 1972 Sigmoidoscopy 1972 Depression Screening (12+) 1984 HIV Screening 06/03/1987 Hepatitis C Screening 1990 Pap Smear 1993 Breast Cancer Screening 2012 Lipid Panel 2017 DTAP/TDAP/TD VACCINES (2 - Td or Tdap) 01/22/2022 Pneumococcal 50+ years (1 of 1 - PCV) 2022 Shingles Vaccine (Zoster) (1 of 2) 2022 Tobacco Cessation Counseling and Screening (12+) 02/2802/28/2022 COVID-19 VACCINE (1 - 2023- season) 2024 Influenza Vaccine (#1) 2024 Insurance MEDICARE PART A B Care Teams Combination Machine Tender Relationship Specialty Start Date End Date Deion Sen MD PCP - General Family Medicine 02/28/22
--- OUTSIDE RECORDS SUMMARY | 2025-01-26 10:48 | XMS_ITS | Encounter Summary ---
Author Organization [facility] Address [address] [place] [address] Care Team Providers Care Caul Puller Name Role Phone Mckinley GUZMAN MD Deion [...] release of HIV test results or diagnoses. [id number] Reason for Visit * Reason Comments New Med Request Encounter Details Date Type Department Care Team (Late st Contact Info) Description 10/30/2024 Refill [facility] Neurology at [facility] Neuroscience [place] [address] [facility] [address] [place] [address] Malika Gusman, NASRIN [address] [facility] [address] [place] [phone] Social History Tobacco Use Types Packs/Day Years Used Date Smoking Tobacco: Former Cigarettes Q uit: 02/2005 Passive Smoke Exposure: Past Smokeless Tobacco: Never Alcohol Use Standard Drinks/Week Comments Yes 0 (1 standard drink = 0.6 oz pur e alcohol) 1 Jello Shot [employer] [place] PHQ-2 Answer Date Recorded PHQ-2 Total Score 0 10/29/2023 Yearly Questionnaire Answer Date Record ed Do you need any assistance w ith obtaining housing, meals, medication, transportation or medical equipment? No 10/28 Assistance needed for: Not on file 09/03/202 4 Yearly Questionnaire Answer Date Record ed [...] encounter Miscellaneous Notes * Telephone Encounter - Clyde Dove LPN - 11/02/2024 1:34 PM EDT Call patient today per Malika Gusman CNP. Patient request for Rx to be sent to [facility].Patient is also requesting a 90 days supply. documented in this encounter Plan of Treatment Not on file documented as of this encounter Visit Diagnoses Not on filedocumented in this encounter Additional Health Concerns Assessment Noted Time PHQ-9 Depression Total Score: 17 023 12:00 PM EDT documented as of this encounter Care Teams Caul Puller Relationship Specialty Start Date End Date Deion Sen III, MD [address] [place] [address] PCP - General Family Medicine 08/31/21 documented as of this encounter
--- OUTSIDE RECORDS SUMMARY | 2025-01-26 10:48 | XMS_ITS | Encounter Summary ---
Author Organization [facility] Address [address] [place] [address] Care Team Providers Care Auto Parts Handler Name Role Phone Mckinley GUZMAN MD Deion [...] release of HIV test results or diagnoses. [id number] Reason for Visit * Reason Comments Medication Management Encounter Details Date Type Department Care Team (Late st Contact Info) Description 12/10/2024 Telephone [facility] Neurology at [facility] Neuroscience [address] [place] [address] Clyde Dove LPN Medication Management Social History Tobacco Use Types Packs/Day Years Used Date Smoking Tobacco: Former Cigarettes Q uit: 02/2005 Passive Smoke Exposure: Past Smokeless Tobacco: Never Alcohol Use Standard Drinks/Week Comments Yes 0 (1 standard drink = 0.6 oz pur e alcohol) 1 Jello Shot [place] PHQ-2 Answer Date Recorded PHQ-2 Total Score [...] Telephone Encounter - Clyde Dove LPN - 12/10/2024 12:55 PM EDT Call patient today to Pre-Chart and to confirm appointment with on 12/11/2024 at 8:30am documented in this encounter Plan of Treatment Not on file documented as of this encounter Visit Diagnoses Not on filedocumented in this encounter Additional Health Concerns Assessment Noted Time PHQ-9 Depression Total Score: 17 023 12:00 PM EDT documented as of this encounter Care Teams Auto Parts Handler Relationship Specialty Start Date End Date Deion Sen III, MD [address] [place] [address] PCP - General Family Medicine 08/31/21 documented as of this encounter
--- OUTSIDE RECORDS SUMMARY | 2025-01-26 10:48 | XMS_ITS | Encounter Summary ---
Author Organization [facility] Address [address] [place] [address] Care Team Providers Care Art Class Model Name Role Phone Mckinley GUZMAN MD Deion [...] release of HIV test results or diagnoses. [id number] Reason for Visit * Reason Comments Appointment Encounter Details Date Type Department Care Team (Late st Contact Info) Description 12/23/[address] [facility] Neurology at [facility] Neuroscience [place] [address] [place] [address] [address] [place] [address] Clyde Dove LPN Appointment Social History Tobacco Use Types Packs/Day Years Used Date Smoking Tobacco: Former Cigarettes Q uit: 02/2005 Passive Smoke Exposure: Past Smokeless Tobacco: Never Alcohol Use Standard Drinks/Week Comments Not Currently 0 (1 standard drink = 0.6 oz pur e alcohol) 1 Jello Shot [place] PHQ-2 Answer Date Recorded PHQ-2 Total Score [...] Telephone Encounter - Clyde Dove LPN - 12/23/2024 2:20 PM EDT Call patient today to schedule a BOTOX appointment. For 01/19/2025 at 8:00am and for 04/21/2025 at 8:00am with JANI Foss. Patient has a follow up appointment schedule for 05/19/2025 at 8:30am documented in this encounter Plan of Treatment Not on file documented as of this encounter Visit Diagnoses Not on filedocumented in this encounter Additional Health Concerns Assessment Noted Time PHQ-9 Depression Total Score: 17 023 12:00 PM EDT documented as of this encounter Care Teams Art Class Model Relationship Specialty Start Date End Date Deion Sen III, MD [address] [place] [address] PCP - General Family Medicine 08/31/21 documented as of this encounter
--- OUTSIDE RECORDS SUMMARY | 2025-01-26 10:48 | XMS_ITS | Clinical Summary ---
Author Organization [facility] Address [facility] [facility], [address] [place] [address] Care Team Providers Care Pilot Instructor Name Role Phone Justin Redman MD Primary Care Provider Unav ailable Allergies Active Allergy Reactions Criticality Noted Date Comments Nsaids 07/06/2015 States can't take b/c ulcer Social History Tobacco Use Types Packs/Day Years Used Date Smoking Tobacco: Former Alcohol Use Standard Drinks/Week Comments Yes 0 (1 standard drink = 0.6 oz pur e alcohol) occasinoal Comments No Sex and Gender Information Value Date Recorded Sex Assigned at Not on file Legal Sex Female 11:32 AM EDT Gender Identity Not on file Sexual Orientation Not on file Last Filed Vital Signs Vital Sign Reading Time Taken Comments Blood Pressure 136/79 07/06/2015 11:46 AM EDT Pulse 89 07/06/2015 11:46 AM EDT Temperature 36.3 C (97.3 F) 07/06/2015 11:46 AM EDT Respiratory Rate 16 07/06/2015 11:46 AM EDT Oxygen Saturation 96% 07/06/2015 11:46 AM EDT Inhaled Oxygen Concentration - - Weight 93.4 kg (206 lb) 07/06/2015 11:46 AM EDT Height 149.9 cm (4' 11 ) 07/06/2015 11:46 AM EDT Body Mass Index 41.61 07/06/2015 11:46 AM EDT Plan of Treatment Not on file Care Teams Pilot Instructor Relationship Specialty Start Date End Date Justin Redman MD PCP - General 07/06/15
--- OUTSIDE RECORDS SUMMARY | 2025-01-26 10:48 | XMS_ITS | Clinical Summary ---
Author Organization [facility] Address [address] [place] [address] Care Team Providers Care Assembly Line Brazer Name Role Phone Pcp, No Primary Care Provider Unavailabl e Allergies Active Allergy Reactions Criticality Noted Date Comments Pregabalin Other - please docum ent in the comment field Low 05/11/2021 Vision changes Nsaids Other - please docum ent in the comment field Low 05/11/2021 Medications traMADol (Ultram) 50 MG tablet Take 50 mg by mouth 3 (three) times a day if needed. 02/22/2021 Active cyclobenzaprine (Flexeril) 10 MG tablet TAKE 1 TABLET BY MOUTH 3 TIMES DAILY NEEDED FOR MUSCLE SPASM 11/10/2014 Active zolpidem (Ambien) 5 MG tablet Take 5 mg by mouth. 02/21/2021 Active topiramate 50 MG tablet Take 50 mg by mouth twice a day. 150mg per day 04/27/2021 Active HYDROcodone-acet aminophen ([place]) 5-325 MG tablet Active Family History Medical History Relation Name Comments Drug abuse Father Emphysema Father Breast cancer Father's Sister Conversions - Other Mother Bipolar Disorder NOS Depression Mother Hearing loss Sister Drug abuse Son Relation Name Status Comments Father Father's Sister Mother Sister Son Social History Tobacco Use Types Packs/Day Years Used Date Smoking Tobacco: Never Smokeless Tobacco: Never Tobacco Cessation:Counseling Given: Not Answered Alcohol Use Standard Drinks/Week Comments Never 0 (1 standard drink = 0.6 oz pur e alcohol) Comments Unknown Sex and Gender Information Value Date Recorded Sex Assigned at Not on file Legal Sex Female 6:26 PM EDT Gender Identity Not on file Sexual Orientation Not on file Last Filed Vital Signs Vital Sign Reading Time Taken Comments Blood Pressure 124/81 03/27/2022 12:37 PM EST Pulse 56 03/27/2022 12:37 PM EST Temperature 36.7 C (98.1 F) 03/27/2022 10:36 AM EST Respiratory Rate 16 03/27/2022 12:37 PM EST Oxygen Saturation 96% 03/27/2022 12:37 PM EST Inhaled Oxygen Concentration - - Weight 76.7 kg (169 lb 1.5 oz) 03/27/2022 10:36 AM EST Height 151.1 cm (4' 11.5 ) 07/06/2021 10:53 AM E DT Body Mass Index 33.58 07/06/2021 10:53 AM EDT Plan of Treatment Health Maintenance Due Date Last Done Comments [facility]-Depression Screening 1972 [facility]-HIV Screening 1972 [facility]-Hepatitis C Screening 1972 [facility]-Medicare Annual Wellness (AWV) 1972 [facility]-/Child/Adol SDOH Screenings 1972 [facility]-Obesity Intervention 1978 [facility]- SDOH Screenings 1990 [facility]-Adult SDOH Screenings 1990 [facility]-Hepatitis B Vaccines (1 of 3 - 19+ 3-dose series) 06/03/1991 CT Colonography 2017 Colonoscopy 2017 FIT-DNA 2017 FIT 2017 FOBT 2017 Sigmoidoscopy 2017 [facility]-Colorectal Cancer Screening 2017 [facility]-DTaP,Tdap,and Td Vaccine s (2 - Td or Tdap) 01/22/2022 01/23/2012 [facility]-Breast Cancer Screening 2022 06/0 07/2015, 07/20/2014, 07/23/2013 [facility]-Pneumococcal Vaccine: 50 + Years (1 of 1 - PCV) 2022 [facility]-Zoster Vaccines (1 of 2) 2022 [id number]-00 Vaccine (1 - 2024- season) 2024 [facility]-Influenza Vaccine (#1) 2024 HPV Vaccines Aged Out No longer eligi ble based on patient's age to complete this topic [facility]-HIB Vaccines Aged Out No longer e ligible based on patient's age to complete this topic [facility]-Hepatitis A Vaccines Aged Out No longer eligible based on patient's age to complete this topic [facility]-IPV Vaccines Aged Out No longer e ligible based on patient's age to complete this topic [facility]-Rotavirus Vaccines Aged Out No lo nger eligible based on patient's age to complete this topic Insurance MEDICARE Care Teams Assembly Line Brazer Relationship Specialty Start Date [place] [address] PCP - General Family Medicine 03/27/22
--- NOTE | 2025-01-26 11:00 | XR_ITS ---
FINAL REPORT CLINICAL HISTORY: trauma ttp FINDINGS: RIGHT SHOULDER Three views demonstrate no acute fracture or dislocation. The visualized joint spaces are normally aligned. There is mild degenerative joint disease. The soft tissues are unremarkable. IMPRESSION: No acute process. Reviewed, Interpreted and Dictated by Vanessa Sykes MD Transcribed by Gregoria Mendoza Authenticated and [facility]
[2025-01-26] MEDS: LIDOCAINE 5% TRANSDERMAL PATCH 1 EACH TD (11:12)
[2025-01-26] MEDS: ACETAMINOPHEN 500MG TAB 1000 MG PO (11:12)
[2025-01-26] MEDS: KETOROLAC 15MG/ML VIAL 15 MG IM (11:12)
--- NOTE | 2025-01-26 12:10 | PC.NURSE ---
Provider places discharge order, but requests patient not be discharged until after x-ray read is resulted.
[2025-01-26 12:32] VITALS: BP 138/74; PULSE 71; RESP 18; TEMP 36.7; O2SAT 98
== END 2025-01-26 12:32 | disposition home or self-care (01) ==
PROVIDERS: Emergency Provider Emergency Medicine; PCP Nurse Practitioner Family
DX: M75.101 Unspecified rotator cuff tear or rupture of right shoulder, not specified as traumatic (principal); M25.511 Pain in right shoulder; W01.198A Fall on same level from slipping, tripping and stumbling with subsequent striking against other object, initial encounter
CPT/HCPCS: 73030; 96372; 99283; 99284; J1885

== ENCOUNTER 2025-02-09 14:37 | Outpatient (RCR) | payer MEDICARE, SELFPAY ==
--- NOTE | 2025-02-09 15:28 | HMH.OTOPEV ---
OT Evaluation Rehab OT Outpatient Eval Start: 02/09/25 14:46 Freq: Status: Active Protocol: Document 02/09/25 14:51 DURGA (Rec: 02/09/25 15:28 DURGA [id number]) E-signed By Elo Devine, OT Outpatient Therapy Subjective History Subjective History Pt is a 54 year old female who is being seen for initial OT eval due to right shoulder deficits. Pt reported they have a RTC tear in their R shoulder. Pt reported the accident occurred aprox 6 weeks ago when they were pulling a middle section of their fridge drawer out and the entire drawer came out and pt flew across the kitchen into island. pt reported they had an x-ray at the ER and there were no findings on x-ray. Pt is scheduled to have MRI on 02/11/25. Pt reports that there is time when they do not have pain in R shoulder. Pt reported they are R hand dominant. Pt reported no precautions to therapy. New diagnosis of No cancer in past 12 months? Chief Complaint Pain,Stiff,Weakness,Decreased Project Management Analyst Strength,Decreased Coordination Symptom Type Ache,Shooting Symptoms Relieved By Rest/Positioning,Ice Symptoms Aggravated Physical Activity,Lifting By Prior Functional None Limitations Current Functional Reaching,Lifting,Housework,Dressing,Sleeping,Recreation Limitations Activity Symptom Description Activity Dependent Level of pain today 5 (0-10) Pain scale - at its 5 best (0-10) Pain scale - at its 6 worst (0-10) Shoulder/Elbow Eval Shoulder Objective Measurements Palpation Tenderness tenderness shoulder right exam standard Shoulder Palpation Tenderness Findings Shoulder Palpation Tenderness at anterior RTC Overall Comment Shoulder ROM Right Shoulder ROM Muscle Weakness,Pain Limitations Shoulder Abduction 135 Active Range of Motion (degrees) Shoulder Flexion 135 Active Range of Motion (degrees) Query Text: Shoulder External 30 Rotation Active Range of Motion ( degrees) Shoulder Internal 15 Rotation Active Range of Motion ( degrees) pain with active ROM right shoulder exam standard full ROM shoulder right exam standard Shoulder MMT Shoulder Abduction 3- Fair- Strength Grade Shoulder Flexion 3- Fair- Strength Grade Shoulder External 3- Fair- Rotation Strength Grade Shoulder Internal 3- Fair- Rotation Strength Grade Shoulder Strength Sitting Patient Testing Position Elbow Objective Measurements Wrist/Hand Eval Project Management Analyst/Pinch Strength Right Project Management Analyst Strength 35 Measurement (lbs) Left Project Management Analyst Strength 45 Measurement (lbs) QuickDASH Activities Please rate your ability to do the following activities in the last week by selecting the number below the appropriate response. 1. Open a tight or Mild difficulty new jar. 2. Do heavy Mild difficulty high school academic coach (e. g., wash garcia, floors). 3. Carry a shopping Moderate difficulty bag or briefcase. 4. Wash your back. Severe difficulty 5. Use a knife to No difficulty cut food. 6. Recreational Moderate difficulty activities in which you take some force or impact through your arm, shoulder, or hand (e.g., golf, hammering, tennis, etc.). 7. During the past Moderately week, to what extent has your arm, shoulder or hand problem interfered with your normal social activities with family, friends , neighbors or groups? 8. During the past Moderately limited week, were you limited in your work or other regular daily activites as a result of your arm, shoulder or hand problem? 9. Arm, shoulder or Moderate hand pain. 10. Tingling (pins None and needles) in your arm, shoulder or hand. 11. During the past Severe difficulty week, how much difficulty have you had sleeping because of the pain in your arm, shoulder or hand? Quick DASH 29 OT Patient Goals OT Patient Goals OT Short Term 1. Pt will increase R shoulder flexion to 145 degrees Patient Goals in order to complete daily overhead tasks independently ~50% of the time. 2. Pt will increase R shoulder abduction to 145 degrees to complete upper body dressing independently ~50% of the time. 3. Pt will increase R shoulder ER/IR to 35 degrees (ER) and 25 degrees (IR) in order to complete lower body dressing (putting on and taking off belt) independently ~50% of the time. 4. Pt will increase strength to 3+/5 throughout R shoulder in order to complete heavier household tasks ( laundry, mopping, vacuuming) independently ~50% of the time. 5. Pt will verbalize decreased pain levels at worst in R shoulder to a 5/10 in order to complete daily ADLs independently ~50% of the time. 6. Pt will demonstrate improved endurance by completing R shoulder exercises for ~20 minutes prior to rest break in order to increase her tolerance for daily activities. 7. Pt will demonstrate independence with HEP of AAROM exercises to increase overall functional use of R shoulder in daily activities ~75% of the time. OT Residential Patient 1. Pt will increase R shoulder flexion to 155 degrees Goals in order to complete daily overhead tasks independently ~50% of the time. 2. Pt will increase R shoulder abduction to 155 degrees to complete upper body dressing independently ~50% of the time. 3. Pt will increase R shoulder ER/IR to 45 degrees (ER) and 35 degrees (IR) in order to complete lower body dressing (putting on and taking off belt) independently ~50% of the time. 4. Pt will increase strength to 4-/5 throughout R shoulder in order to complete heavier household tasks ( laundry, mopping, vacuuming) independently ~50% of the time. 5. Pt will verbalize decreased pain levels at worst in R shoulder to a 4/10 in order to complete daily ADLs independently ~50% of the time. 6. Pt will demonstrate improved endurance by completing R shoulder exercises for ~25 minutes prior to rest break in order to increase her tolerance for daily activities. 7. Pt will demonstrate independence with advanced strengthening exercises to increase overall functional use of R shoulder in daily activities ~75% of the time. OT Outpatient Assessment Impairments Problems/Impairments Palpation Tenderness,Impaired Range of Motion,Impaired Strength,Impaired Endurance,Impaired Lifting,Impaired Dressing,Impaired Shower/Bathing,Impaired Household Care,Impaired Recreational Activities,Subjective C/O Pain,Impaired Self Care/Self Management Prognosis Rehab Potential Good Comment Based upon measurements and assessments completed, pt would benefit from skilled OP OT services and interventions to improve optimal occupational performance and address functional limitations. Clinical Impression Consistent with Yes Diagnosis Outpatient Therapy Plan of Care Treatment Plan May Include Therapeutic Exercise Yes Including Home Exercise Program Manual Therapy Yes Techniques Neuromuscular Re- Yes education Therapeutic Yes Activities to Return to Previous Functional/Work Level ADL/Self Care Yes Education Thermal Modalities Yes Electrical Yes Stimulation Ultrasound/ Yes Phonophoresis Iontophoresis Yes Parrafin Yes Orthotics/Bracing/ Yes Splinting Group Therapy for Yes Medicare Eval/Re-Eval Yes Frequency Times per week 2 Duration Number of Weeks 6 Addendums This patient is a No candidate for social or vocational rehab ? Patient/Guardian Yes verbally acknowledges understanding of treatment program and consents to further treatment? Patient/Guardian Yes verbally acknowledges understanding of diagnosis, prognosis and goals for treatment? Eval Complexity OT Charge [id number] - Moderate Complexity PHYSICIAN CERTIFICATION: I certify the specified therapy services for Marycruz Oswald are required, authorized, and reviewed every 30 days.
== END 2025-02-09 23:59 | disposition home or self-care (01) ==
LOC: OT 14:37
PROVIDERS: PCP Nurse Practitioner Family; Visit Provider Student in an Organized Health Care Education/Training Program
DX: M75.101 Unspecified rotator cuff tear or rupture of right shoulder, not specified as traumatic (principal); M12.811 Other specific arthropathies, not elsewhere classified, right shoulder
CPT/HCPCS: 97166

== ENCOUNTER 2025-02-10 12:37 | Outpatient (CLI) | payer MEDICARE, SELFPAY ==
--- OUTSIDE RECORDS SUMMARY | 2024-12-11 07:30 | XMS_ITS | Encounter Summary ---
Author Organization [facility] Address [address] [place] [id number] Care Team Providers Care Jewel Inspector Name Role Phone Mckinley GUZMAN MD, George [...] release of HIV test results or diagnoses. [id number] Health Encounter Details Date Type Department Care Team (Late st Contact Info) Description 12/11/2024 8:30 AM EDT Office Visit [facility] [address] [place] [address] Odessa Betts MD [address] [facility] [place] [address] Intractable chronic migraine without aura and without status migrainosus (Primary Dx) Social History Tobacco Use Types Packs/Day Years Used Date Smoking Tobacco: Former Cigarettes 0 Q uit: 02/2005 Passive Smoke Exposure: Past Smokeless Tobacco: Never Tobacco Cessation:Counseling Given: Not Answered Alcohol Use Standard Drinks/Week Comments Not Currently 0 (1 standard drink = 0.6 oz pur e alcohol) 1 Jello Shot [place] PHQ-2 Answer Date Recorded PHQ-2 Total Score [...] treatments: Triptans - Imitrex stat dose, Maxalt TONG CARRIER; OTCs - no; Rx NSAIDs - Toradol; [...] total) by mouth 2 times a day. xznzdmwi-oseh-gmcqe-oreg-capry Take by mouth. No current facility-administered medications for this visit. VS: There were no vitals taken for this visit. [facility] 08/2024 reviewed in EPIC Assessment: Chronic Migraine [...] or procedures,referring and communicating with other health child caregiver private home , documenting clinical informationin the electronic or other health record, providing care coordination , and performing oup-dtjr-ao-face activities. [1] Social History Tobacco Use Smoking status: Former Current packs/day: 0.00 Types: Cigarettes Quit date: 02/2005 Years since quittin.8 Passive exposure: Past Smokeless tobacco: Never Vaping Use Vaping status: Never Used Substance Use Topics Alcohol use: Not Currently Comment: 1 Jello Shot [place] Drug use: Never [2] Allergies Allergen Reactions [...] documented as of this encounter Care Teams Jewel Inspector Relationship Specialty Start Date End Date Deion Sen III, MD [address] [place] [address] PCP - General Family Medicine 08/31/21 documented as of this encounter
--- OUTSIDE RECORDS SUMMARY | 2025-02-04 14:00 | XMS_ITS | Encounter Summary ---
Author Organization [facility] Address [address] [place] [address] Care Team Providers Care Stable Attendant Name Role Phone Mckinley GUZMAN MD, [place] Primary Care Provide r Source Comments This [...] release of HIV test results or diagnoses. [id number] Reason for Visit * Episode Based Authorization (Routine) - Authorized Specialty Diagnoses / Procedures Referred By Danielle moore Referred To Contact Diagnoses Intractable chronic migraine without aura and without status migrainosus Procedures HI INJECTION,ONABOTULINUMTOXINA HI CHEMODERVATE FACIAL/TRIGEM/CERV MUSC MIGRAINE Timothy Cullen PA [address] [place] [place] [address] Phone: tel: fax: [facility] [address] [place] [address] Phone: tel: fax: Referral ID Status Reason Start Date Expiration Date V isits Requested Visits Authorized [id number] Authorized 12/23/2024 04/26/2025 100 100 Encounter Details Date Type Department Care Team (Latest Contact Info) Description 02/04/2025 2:00 PM EST Procedure visit [facility] at [facility] [address] [place] [id number] Timothy Cullen PA [address] [place] [place] [address] Intractable chronic migraine without aura and without status migrainosus (Primary Dx) Social History Tobacco Use Types Packs/Day Years Used Date Smoking Tobacco: Former Cigarettes 0 Q uit: 02/2005 Passive Smoke Exposure: Past Smokeless Tobacco: Never Alcohol Use Standard Drinks/Week Comments Not Currently 0 (1 standard drink = 0.6 oz pur e alcohol) 1 Jello Shot [place] PHQ-2 Answer Date Recorded PHQ-2 Total Score [...] on file documented as of this encounter Last Filed Vital Signs Vital Sign Reading Time Taken Comments Blood Pressure 135/82 02/04/2025 2:02 PM EST Pulse 84 02/04/2025 2:02 PM EST Temperature - - Respiratory Rate - - Oxygen Saturation 99% 02/04/2025 2:02 PM EST Inhaled Oxygen Concentration 99% 02/04/2025 2 :02 PM EST Weight 59.5 kg (131 lb 3.2 oz) 02/04/2025 2:02 P M EST Height 149.9 cm (4' 11 ) 02/04/2025 2:02 PM EST Body Mass Index 26.5 02/04/2025 2:02 PM EST documented in this encounter Progress Notes * JANI Neff - 02/04/2025 2:00 PM EST Date: 02/04/2025 Botox Procedure Note Patient: Marycruz Oswald : 1970 Referring Provider: Dr. Betts Procedure Provider: JANI NEFF Allergies: Allergies[1] BOTOX PREEMPT PROTOCOL The risks, benefits and anticipated outcomes of the procedure, the risks and benefits of the alternatives to the procedure, and the roles and tasks of the personnel to be involved, were discussed with the patient. The side effects of onabotulinum toxin used for the treatment of chronic migraine have been described to the patient in detail. These include: ptosis, neck pain, neck weakness, anaphylaxis, cellulitis, systemic spread (, respiratory failure, dysarthria, dysphagia, diplopia), blood born illnesses (HIV, hepatitis, mad cow disease). The patient is aware that any side effects related to muscle paralysis could last for 3 months. Patient Consent: The patient was consented for Botox injections by JANI NEFF a copy will be scanned into the record.Risks, benefits and alternatives were discussed with patient who gave their verbal and written consent. Patient states understanding of procedure; understanding matches consent. Time Out: Patient identity confirmed verbally with patient, The patient was counseled regarding the procedure, it's indications, risks, potential complications and alternatives and any questions were answered.Consent was obtained., devices, medication and special equipment available. Details of Procedure: Muscles to be treated were identified by anatomical landmarks as described byAleisha et. Al in 1994. Injection site(s) identified Patient: Marycruz Oswald : 1970 Procedure Provider: JANI NEFF Intended Procedure: BOTOX for Chronic Migraine using the PREEMPT Protocol Allergies: Allergies[2] Anticipated Critical Events: none Anticipated equipment/or implants are present and appropriately sterile: yes Receipt of prophylactic antimicrobials or special medications within 60 minutes: N/A Imaging is available, displayed, and patient identifiers on imaging match the patient: N/A Fire Risk: no Verbalization ???does anyone have additional concerns??? no Procedure: Muscles to be treated were identified by anatomical landmarks. Injection site(s) identified. Sites were then cleansed with alcohol. A needle was introduced into the targeted muscles, the syringe was aspirated to ensure that a blood vessel had not been entered. No blood was retrieved. Procedure was performed without complications. Treatment # 1 Dilution: 5 units/0.1 ml (200 U of botox was mixed with 4 ccs of bacteriostatic saline.) Indication: Chronic Migraine Injection Sites: 0.1 ccs of this solution was injected into the following: Muscle Fixed Site/Fixed Dose L R Tableau Analyst 10 Units divided in 2 sites 5 5 Procerus 5 Units in 1 site 5 Frontalis 20 Units divided in 4 sites 10 10 Temporalis 40 Units divided in 8 sites 20 20 Occipitalis 30 Units divided in 6 sites 15 15 Cervical PSPs 20 Units divided in 4 sites 10 10 Trapezius 30 Units divided in 6 sites 15 15 Other sites: Subtotals 155 Units Total Units used: 155 Total Units wasted: 45 Sign Out: Signs and symptoms of infection and toxicity were reviewed with there patient who verbalized their understanding of the information reviewed with them. The patient tolerated the procedure well. Change in Treatment Plan?no RTC: 3 Months, For Botox and PRN AJNI Neff [1] Allergies Allergen Reactions Gabapentin Swelling Other Reaction(s): Joint Pain Nsaids (Non-Steroidal Anti-Inflammatory Drug) Other (See Comments) States can't take b/c ulcer Stomach Ulcer Other Reaction(s): Not available Other Reaction(s): Unknown allergy reaction Other Reaction(s): vomiting Other Reaction(s): Not available, vomiting Non-steroidal anti-inflammatory agent (product) Non-steroidal anti-inflammatory agent (substance) Pregabalin Other (See Comments) Vision changes Other reaction(s): Other Other Reaction(s): other Lyrica [2] Allergies Allergen Reactions Gabapentin Swelling Other Reaction(s): Joint Pain Nsaids (Non-Steroidal Anti-Inflammatory Drug) Other (See Comments) States can't take b/c ulcer Stomach Ulcer Other Reaction(s): Not available Other Reaction(s): Unknown allergy reaction Other Reaction(s): vomiting Other Reaction(s): Not available, vomiting Non-steroidal anti-inflammatory agent (product) Non-steroidal anti-inflammatory agent (substance) Pregabalin Other (See Comments) Vision changes Other reaction(s): Other Other Reaction(s): other Lyrica documented in this encounter Plan of Treatment Not on file documented as of this encounter Visit Diagnoses Diagnosis Intractable chronic migraine without aura and without status migrainosus- Primary documented in this encounter Administered Medications Inactive Administered Medications - up to 3 most recent administrations Medication Order MAR Action Action Date Dose Rate Site onabotulinumtoxinA (BOTOX) injection 155-200 Units 155-200 Units, Intramuscular, Once, On Rosa 02/04/25 at 1430, For 1 dose, Reconstitute 200 unit vial with 4 mL of diluent (0.9% sodium chloride, preservative free). Final concentration 5 units/0.1 mL. Dose administered intramuscularly as 0.1 mL (5 unit) injections per each site. REFRIGERATE; MUST BE USED WITHIN 24 HOURS AFTER RECONSTITUTIONIndications:Intra ctable chronic migraine without aura and without status migrainosus Given 02/04/2025 2:24 PM EST 155 Units Other documented in this encounter Additional Health Concerns Assessment Noted Time PHQ-9 Depression Total Score: 17 023 12:00 PM EDT documented as of this encounter Care Teams Stable Attendant Relationship Specialty Start Date End Date Deion Sen III, MD [address] [place] [address] PCP - General Family Medicine 08/31/21 documented as of this encounter
--- NOTE | 2025-02-10 13:00 | MR_ITS ---
FINAL REPORT TECHNIQUE: Multiplanar and multisequence imaging of the shoulder was obtained without contrast. CLINICAL HISTORY: right shoulder pain after fall 6 weeks ago FINDINGS: Bones and joints: There is bone marrow edema of the posterior subchondral humeral head most consistent with contusion. Acromioclavicular joint degenerative disease is present and there is osteophytosis which narrows the supraspinatus outlet. Rotator cuff: The supraspinatus tendon is intact. There is supraspinatus tendinopathy. There is a partial-thickness articular sided infraspinatus tendon tear involving less than 50% thickness of the tendon. No subscapularis tendon tear. There is no fatty atrophy of the rotator cuff muscles. Labrum: The biceps labral complex is intact. No labral tear is identified. The inferior glenohumeral ligament is intact. The biceps tendon is intact. No biceps tendon tear is identified. Other: There is no significant joint effusion. Remaining soft tissues are within normal limits. IMPRESSION: Contusion to the posterior subchondral humeral head. Partial-thickness articular sided infraspinatus tendon tear. Reviewed, Interpreted and Dictated by Vanessa Sykes MD Transcribed by Jeannie Rush Authenticated and [facility]
--- OUTSIDE RECORDS SUMMARY | 2025-02-10 13:25 | XMS_ITS | Clinical Summary ---
Author Organization [employer] ([place], [place], [place], [place], [place]) Address [address] [place] [address] Care Team Providers Care Electrical Engineering Technologist Name Role Phone Deion Sen MD Primary [...] Date Margarito rded Speak language other than [place] Islander at home Not on file 03/15/2023 Want [...] Insurance MEDICARE PART A B Care Teams Electrical Engineering Technologist Relationship Specialty Start Date End Date Deion Sen MD PCP - General Family Medicine 02/28/22
--- OUTSIDE RECORDS SUMMARY | 2025-02-10 13:25 | XMS_ITS | Referral Summary ---
Author Organization [employer] ([place], [place], [place], [place], [place]) Address [address] [place] [address] Care Team Providers Care Alternative Financing Specialist Name Role Phone Deion Sen MD Primary [...] Date Margarito rded Speak language other than [place] Citizen at home Not on file 03/15/2023 Want [...] Insurance MEDICARE PART A B Care Teams Alternative Financing Specialist Relationship Specialty Start Date End Date Deion Sen MD PCP - General Family Medicine 02/28/22
--- OUTSIDE RECORDS SUMMARY | 2025-02-10 13:25 | XMS_ITS | Encounter Summary ---
Author Organization [facility] Address [address] [place] [address] Care Team Providers Care Flat Knitter Name Role Phone Mckinley GUZMAN MD Deion [...] release of HIV test results or diagnoses. [id number] Reason for Visit * Reason Comments Appointment Encounter Details Date Type Department Care Team (Late st Contact Info) Description 12/23/2024 Telephone [facility] Neurology at [facility] [place] [address] [place] [address] [address] [place] [address] Clyde Dove LPN Appointment Social History Tobacco Use Types Packs/Day Years Used Date Smoking Tobacco: Former Cigarettes 0 Q uit: 02/2005 Passive Smoke Exposure: Past Smokeless Tobacco: Never Alcohol Use Standard Drinks/Week Comments Not Currently 0 (1 standard drink = 0.6 oz pur e alcohol) 1 Jello Shot [place] PHQ-2 Answer Date Recorded PHQ-2 Total Score [...] documented as of this encounter Care Teams Flat Knitter Relationship Specialty Start Date End Date Deion Sen III, MD [address] [place] [address] PCP - General Family Medicine 08/31/21 documented as of this encounter
--- OUTSIDE RECORDS SUMMARY | 2025-02-10 13:25 | XMS_ITS | Clinical Summary ---
Author Organization [facility] Address [address] [place] [address] Phone Care Team Providers Care Slag Worker Name Role Phone Justin Redman MD Primary Care Provider Jose Bailey MD Unavailable Unavailabl e Allergies Active Allergy Reactions Criticality Noted Date Comments Nsaids (Non-Steroidal Anti-Inflammatory Drug) 07/31/2013 Stomach Ulcer Medications lansoprazole (PREVACID) 30 mg capsule Take by mouth daily. Active rizatriptan (MAXALT-STEAM TURBINE OPERATOR) 10 mg disintegrating tablet Take 10 mg [...] EST Impressions 04/03/2024 9:09 AM EST Benign ([id number]) RECOMMENDATION: Routine Screening Mammogram in 1 Year Bilateral No additional recommendation No additional laterality COMMENTS: Narrative 04/03/2024 9:09 AM EST EXAM: MM MAMMO DIGITAL RAIN SCREEN BILAT EXAM DATE: 04/02/2024 11:19 AM INDICATION: Z12.31-Encounter for screening mammogram for malignant neoplasm of [id number] COMPARISON STUDIES: Outside images from [facility] from November 2021 08/01/2015 MM MAMMO DIGITAL SCREENING W CAD BILAT at [facility] 01/13/2015 MM MAMMO DIGITAL DIAGNOSTIC W CAD LEFT at [facility] 07/20/2014 MM MAMMO DIGITAL DIAGNOSTIC W CAD BILAT at [facility] TISSUE DENSITY: There are scattered areas of fibroglandular density. FINDINGS: Stable postreduction changes with distortion. Benign-appearing stable nodularity upper outer quadrant of both breasts probably intramammary lymph nodes. No suspicious new mass or calcification Procedure Note Eduardo Lima MD - 04/03/2024 EXAM: MM MAMMO DIGITAL RAIN SCREEN BILAT EXAM DATE: 04/02/2024 11:19 AM INDICATION: Z12.31-Encounter for screening mammogram for malignantneoplasm of [id number] COMPARISON STUDIES: Outside images from [facility] from November202108/01/2015 MM MAMMO DIGITAL SCREENING W CAD BILAT at [facility] 01/13/2015 MM MAMMO DIGITAL DIAGNOSTIC W CAD LEFT at [facility] 07/20/2014 MM MAMMO DIGITAL DIAGNOSTIC W CAD BILAT at [facility] TISSUE DENSITY: There are scattered areas of fibroglandular density. FINDINGS: Stable postreduction changes with distortion. Benign-appearingstable nodularity upper outer quadrant of both breasts probably intramammarylymph nodes. No suspicious new mass or calcification IMPRESSION: Benign ([id number]) RECOMMENDATION: Routine Screening Mammogram in 1 Year [...] Advance Directives For more information, please contact: [phone] * Full Code (Latest Code Status on File) Date Activated Date Inactivated Comments 09/15/2013 4:31 PM 09/16/2013 9:38 PM Care Teams Slag Worker Relationship Specialty Start Date End Date Justin Redman MD PCP - General Family Medicine 05/07/13 Jose Escudero MD Referring Physician Obstetrics & Gynecology 09/01/13
--- OUTSIDE RECORDS SUMMARY | 2025-02-10 13:25 | XMS_ITS | Clinical Summary ---
Author Organization [facility] Address [address] [place] [address] Care Team Providers Care Mowing Machine Operator Name Role Phone Mckinley GUZMAN MD, Deion [...] therelease of HIV test results or diagnoses. [id number] Allergies Active Allergy Reactions Criticality Noted Date [...] reaction(s): Other Other Reaction(s): other Lyrica Medications zfiuhhb-qjep-bshfb- oreg-capryl 100 mg-150 mg- 50 mg-150 mg [...] Encounters Date Type Department Care Team Description 02/04/2025 2:00 PM EST Procedure visit [facility] [address] [facility] [address] [place] [address] Timothy Cullen PA Intractable chronic migraine without aura and without status migrainosus (Primary Dx) 01/27/2025 Telephone [facility] [address] [facility] [address] [place] [address] Timothy Cullen PA Procedure (Request to Cancel/Reschedule Procedure ) 12/23/2024 Telephone [facility] [address] [facility] [address] [place] [address] Clyde Dove LPN Appointment 12/11/2024 8:30 AM EDT Office Visit [facility] [address] [facility] [address] [place] [address] Odessa Betts MD Intractable chronic migraine without aura and without status migrainosus (Primary Dx) 12/11/2024 Telephone [facility] [address] [place] [address] Pau Merrill RPh Medication Therapy Management (Nurtec) 12/10/2024 Telephone [facility] [address] [facility] [address] [place] [address] Clyde Dove LPN Medication Management from Last 3 Months Social History Tobacco Use Types Packs/Day Years Used Date Smoking Tobacco: Former Cigarettes 0 Q uit: 02/2005 Passive Smoke Exposure: Past Smokeless Tobacco: Never Tobacco Cessation:Counseling Given: Not Answered Alcohol Use Standard Drinks/Week Comments Not Currently 0 (1 standard drink = 0.6 oz pur e alcohol) 1 Jello Shot [place] PHQ-2 Answer Date Recorded PHQ-2 Total Score [...] Pulse 84 02/04/2025 2:02 PM EST Temperature 36.3 C (97.3 F) 01/09/2022 10:06 AM EST Respiratory Rate 16 06/08/2024 1:06 PM EDT Oxygen Saturation 99% 02/04/2025 2:02 PM EST Inhaled Oxygen Concentration 99% 02/04/2025 2 :02 PM EST Weight 59.5 kg (131 lb 3.2 oz) 02/04/2025 2:02 P M EST Height 149.9 cm (4' 11 ) 02/04/2025 2:02 PM EST Body Mass Index 26.5 02/04/2025 2:02 PM EST Plan of Treatment Health Maintenance Due Date Last Done Comments Abnormal Colonoscopy Follow Up 1972 Hepatitis C Screening (MyChart) 1972 HIV Screening 1990 Immunization: Hepatitis B (1 of 3 - 19+ 3-dose series) 06/03/1991 Mammogram (MyChart) 2012 Cologuard (FIT-DNA) 2017 Colonoscopy 2017 Colorectal Cancer Screening (MyChart) 2017 Stool Testing (gFOBT) 2017 Immunization: Pneumococcal ( 1 of 1 - PCV) 2022 Immunization: Zoster (1 of 2) 2022 Immunization: COVID-19 ( - season) 2024 Immunization: Influenza (MyC vargas) (#1) 2024 Depression Screening 10/28/2024 10/29/2023, 09/18/2022, 07/13/2022, Additional history exists Immunization: DTaP/Tdap/Td ( 3 - Td or Tdap) 09/21/2033 09/22/2023, 01/23/2012 Insurance MEDICARE A AND B Care Teams Mowing Machine Operator Relationship Specialty Start Date End Date Deion Sen III, MD [address] [place] [address] PCP - General Family Medicine 08/31/21
--- OUTSIDE RECORDS SUMMARY | 2025-02-10 13:25 | XMS_ITS | Clinical Summary ---
Author Organization [facility] Address [facility] [address] [place] [address] Care Team Providers Care Service Observer Chief Name Role Phone Unavailable Primary Care Provider [...] Name Priority Date/Time Associated Diagnosis Comments CYTOLOGY MARINE OILER Routine 2007 12:00 AM EDT from Last 3 Months or Most Recently Relevant to Health Maintenance Results * Cytology MARINE OILER (2007 12:00 AM EDT) 2007 06/04/2007 8:2 3 AM EDT Narrative [facility] - 06/06/2007 8:57 AM EDT CYTOLOGY GYNECOLOGICAL REPORT Name: MARYCRUZ LEE [facility] [id number] [id number] Case #: [id number] Final Cytologic Diagnosis A. Thinprep cervical endocervical vaginal: Adequacy: Satisfactory for evaluation, endocervical transformation zone component present. Interpretation: Negative for intraepithelial lesion or malignancy. This specimen has been analyzed by the ThinPrep Imaging System ([employer].), an automated imaging and review system, which assists the psychiatry physician and/or pathologist in evaluation of cells on Thinprep Pap tests. Electronically Signed Out By MICHAEL Romero(ASCP) Source of Specimen(s) A: Thinprep cervical endocervical vaginal Clinical History Menstrual History: Not stated Signed out at [facility], [address] [place], [place] [id number] [facility] [employer] Non-Formatted Report Yoly GUNTER PATHOLOGY/CYTOLOGY ORDERABLES Final Result [address] [address] from Last 3 Months or Most Recently Relevant to Health Maintenance
--- OUTSIDE RECORDS SUMMARY | 2025-02-10 13:25 | XMS_ITS | Encounter Summary ---
Author Organization [facility] Address [address] [place] [address] Care Team Providers Care Addiction Social Worker Name Role Phone Mckinley GUZMAN MD Deion [...] release of HIV test results or diagnoses. [id number] Reason for Visit * Reason Comments Procedure Request to Cancel/Re schedule Procedure Encounter Details Date Type Department Care Team (Late st Contact Info) Description 01/27/2025 Telephone [facility] [address] [facility] [address] [place] [address] Timothy Cullen PA [address] [place] [address] Procedure (Request to Cancel/Reschedule Procedure ) Social History Tobacco Use Types Packs/Day Years Used Date Smoking Tobacco: Former Cigarettes 0 Q uit: 02/2005 Passive Smoke Exposure: Past Smokeless Tobacco: Never Alcohol Use Standard Drinks/Week Comments Not Currently 0 (1 standard drink = 0.6 oz pur e alcohol) 1 Jello Shot [place] PHQ-2 Answer Date Recorded PHQ-2 Total Score [...] encounter Miscellaneous Notes * Telephone Encounter - Ailyn Reyes MA - 01/27/2025 12:04 PM EST Patient was called back.Patient was rescheduled for 02/04/25 at [facility] location for 2 pm with JANI Foss.Patient asked if she had any blood work that needed to be done.Patient was informed she didd not and the last blood work she had taken was back in August when Uzma APPRENTICE ARCHITECT ordered which was completed.call complete * Telephone Encounter - Yadira Swain MA - 01/27/2025 11:48 AM EST Pt called. States that she was speaking with Ailyn about scheduling botox and the call dropped mid conversation. Please return call to [phone] * Telephone Encounter - Ailyn Reyes MA - 01/27/2025 11:41 AM EST Patient was called to review times available for botos or to reschedule appointment to later date.Message was left to patient voicemail advising call back to office at .Please advise * Telephone Encounter - Alissa Gary - 01/27/2025 9:41 AM EST Pt called requesting to change the time of her botox procedure on 02/03/25 to a later time the sameday or reschedule for a different date. Please advise. documented in this encounter Plan of Treatment Not on file documented as of this encounter Visit Diagnoses Not on filedocumented in this encounter Additional Health Concerns Assessment Noted Time PHQ-9 Depression Total Score: 17 023 12:00 PM EDT documented as of this encounter Care Teams Addiction Social Worker Relationship Specialty Start Date End Date Deion Sen III, MD [address] [place] [address] PCP - General Family Medicine 08/31/21 documented as of this encounter
--- OUTSIDE RECORDS SUMMARY | 2025-02-10 13:25 | XMS_ITS | Clinical Summary ---
Author Organization [facility] Address [facility], [address] [place] [address] Care Team Providers Care Science And Operations Officer Name Role Phone Justin Redman MD Primary [...] of Treatment Not on file Care Teams Science And Operations Officer Relationship Specialty Start Date End Date Justin Redman MD PCP - General 07/06/15
--- OUTSIDE RECORDS SUMMARY | 2025-02-10 13:25 | XMS_ITS | Encounter Summary ---
Author Organization [place] [address] Care Team Providers Care Fiberglass Roving Winder Name Role Phone Justin Redman MD Primary Care Provider Jose Bailey MD Unavailable Unavailabl e Reason for Visit * Reason Onset Date Comments Medication Refill 04/16/2017 Encounter Details Date Type Department Care Team (Late st Contact Info) Description 04/16/2017 Refill [facility] [address] [place] [address] Giorgi Arias MD [address] [facility] [address] [place] [address] Medication Refill Social History Tobacco [...] documented as of this encounter Care Teams Fiberglass Roving Winder Relationship Specialty Start Date End Date Justin Redman MD PCP - General Family Medicine 05/07/13 Jose Escudero MD Referring Physician Obstetrics & Gynecology 09/01/13 documented as of this encounter
--- OUTSIDE RECORDS SUMMARY | 2025-02-10 13:25 | XMS_ITS | Clinical Summary ---
Author Organization [facility] Address [address] [place] [address] Care Team Providers Care Scientist Name Role Phone Pcp, No Primary Care [...] 150mg per day 04/27/2021 Active HYDROcodone-acet aminophen (Eastham) 5-325 MG tablet Active Family History Medical [...] 2022 [facility]-Zoster Vaccines (1 of 2) 2022 [id number] Vaccine (1 - 2024- season) 2024 [facility]-Influenza Vaccine (#1) 2024 HPV Vaccines (No Doses Required) Completed [facility]-HIB Vaccines Aged Out No longer e [...] complete this topic Insurance MEDICARE Care Teams Scientist Relationship Specialty Start [place] [address] PCP - General Family Medicine 03/27/22
--- OUTSIDE RECORDS SUMMARY | 2025-02-10 13:25 | XMS_ITS | Clinical Summary ---
Author Organization [facility] Address [address] [facility] [address] [id number] Phone Care Team Providers Care Assembler Bicycle Name Role Phone Susan AVILEZ, Tonny Hammond [phone] Conditions or Problems No information available. Medications No information available. Medications Administered No information available. Allergies, Adverse Reactions, Alerts No information available. Results No information available. Plan of Care No information available. Procedures No information available. Vital Signs No information available. Immunizations No information available. Advance Directives No information available.
== END 2025-02-10 23:59 | disposition home or self-care (01) ==
LOC: RAD 12:38
PROVIDERS: PCP Nurse Practitioner Family; Visit Provider Student in an Organized Health Care Education/Training Program
DX: S40.021A Contusion of right upper arm, initial encounter (principal); S46.011A Strain of muscle(s) and tendon(s) of the rotator cuff of right shoulder, initial encounter; M12.811 Other specific arthropathies, not elsewhere classified, right shoulder; M75.81 Other shoulder lesions, right shoulder; W19.XXXA Unspecified fall, initial encounter
CPT/HCPCS: 73221